=== PATIENT | male | born 1965 ===

== ENCOUNTER 2025-06-09 22:01 | Emergency (ER) | payer BC, SELFPAY ==
--- OUTSIDE RECORDS SUMMARY | 2025-06-09 22:03 | XMS_ITS | Clinical Summary ---
Author Organization [facility] Address [address] [place] [address] Care Team Providers Care Irrigation Specialist Name Role Phone VotelAlex MD Primary Care Provider + Allergies No known active allergies Medications MedicationSigDispense QuantityRefillsLast FilledStart DateEnd DateStatus aspirin (ECOTRIN) 81 mg enteric coated tablet Take 1 Tablet (81 mg) by mouth once daily with a meal.ctive multivitamin (MVI) tablet Take 1 Tablet by mouth once daily.ctive lancets (DefiniensTouch Delica Plus Lancet) 30 gauge [facility] Indications:New onset type 2 diabetes mellitus (HC)As directed. Dispense item covered by pt ins. E11.9 NIDDM type II - Test 2 times/day. Reason: New diabetes 100 Each 2Active blood sugar diagnostic (OneTouch Verio test strips) strip Indications:New onset type 2 diabetes mellitus (HC)Dispense test strips covered by the patient insurance. Test 2 times per day. 90 Each 4Active dulaglutide (TRULICITY) 3 mg/0.5 mL subcutaneous pen Indications:New onset type 2 diabetes mellitus (HC)Inject 0.5 ML under the skin 1 time weekly 6 mL 5Active lisinopriL (PRINIVIL; ZESTRIL) 10 mg tablet Indications:HTN (hypertension)TAKE 1 TABLET(10 MG) BY MOUTH EVERY DAY 90 Tablet 5Active rosuvastatin (CRESTOR) 10 mg tablet Indications:Hyperlipidemia LDL goal <70TAKE 1 TABLET(10 MG) BY MOUTH AT BEDTIME 90 Tablet 5Active metFORMIN (GLUCOPHAGE) 1,000 mg tablet Indications:New onset type 2 diabetes mellitus (HC)TAKE 1 TABLET(1000 MG) BY MOUTH IN THE MORNING AND IN THE EVENING WITH MEALS 180 Tablet 5Active oxybutynin (DITROPAN) 5 mg tablet Indications:Left ureteral stoneTake 1 Tablet (5 mg) by mouth 3 times daily if needed (bladder spasms). 30 Tablet 05/15/2025 11:56 AM CST5Active apixaban (ELIQUIS) 5 mg tablet Indications:deep venous thrombosisTake 1 Tablet (5 mg) by mouth two times daily. 60 Tablet 5Active tamsulosin 0.4 mg capsule Indications:Left ureteral stoneTake 1 Capsule (0.4 mg) by mouth once daily after a meal. 30 Capsule 5Active sennosides (SENNA) 8.6 mg tablet Indications:At risk for constipationTake 2 Tablets (17.2 mg) by mouth 2 times daily if needed for Constipation (and while taking oxycodone). 60 Tablet 5Active hydrOXYzine HCL (ATARAX) 50 mg tablet Indications:Pain due to ureteral stent, subsequent encounterTake 1 Tablet (50 mg) by mouth every 6 hours if needed (pain adjunct) for 7 days, THEN 1 Tablet (50mg) 3 times daily if needed (pain adjunct) for up to 15 days. 60 Tablet 5Active oxyCODONE (ROXICODONE) 5 mg immediate release tablet Indications:Flank pain, unspecified laterality,Left ureteral stoneTake 1 Tablet (5 mg) by mouth every 6 hours if needed for Pain. 24 Tablet 5Active glucosam/bentley-msm1/C/danie/bosw (OSTEO BI-FLEX TRIPLE STRENGTH ORAL) Take by mouth.05/13/2025Discontinued(Other - add note to specify (E-cancel not sent)) tamsulosin 0.4 mg capsule Indications:Left ureteral stoneTake 1 Capsule (0.4 mg) by mouth once daily after a meal. 30 Capsule 05/15/2025 11:56 AM CSTDiscontinued oxyCODONE (ROXICODONE) 5 mg immediate release tablet Indications:Left ureteral stoneTake 1 to 2 Tablets (5 to 10 mg) by mouth every 4 hours if needed for Pain (For moderate to severe pain.). 8 Tablet 05/15/2025 11:56 AM [facility]/Discontinued(Reorder (E-cancel not sent)) ciprofloxacin (CIPRO) 500 mg tablet Indications:urinary tract infectionTake 1 Tablet (500 mg) by mouth two times daily before meals for 5 days. 10 Tablet 05/15/2025 11:56 AM [facility] Discontinued) acetaminophen (TYLENOL EXTRA STRGTH) 500 mg tablet Indications:Left ureteral stoneTake 2 Tablets (1,000 mg) by mouth three times daily for 10 days. Max acetaminophen dose: 4000mg in24 hrs. 60 Tablet 05/15/2025 11:56 AM [facility] methocarbamoL 500 mg tablet Indications:Left ureteral stone,PainTake 1 Tablet (500 mg) by mouth 3 times daily if needed for Muscle Spasm for up to 7 days. 21 Tablet 05/15/2025 11:56 AM Discontinued(*Med complete/Regimen complete/Level of care change) oxyCODONE (ROXICODONE) 5 mg immediate release tablet Indications:Kidney stoneTake 1 Tablet (5 mg) by mouth every 6 hours if needed for Pain. 6 Tablet Discontinued(*Patient states no longer taking) HYDROmorphone 2 mg tablet Indications:Renal colic on left sideTake 1 Tablet (2 mg) by mouth every 4 hours if needed for Pain. 15 Tablet Discontinued(*IP Discontinued) tamsulosin 0.4 mg capsule Indications:Left ureteral stoneTake 1 Capsule (0.4 mg) by mouth once daily after a meal. 30 Capsule Discontinued hydrOXYzine HCL (ATARAX) 50 mg tablet Indications:Flank pain, unspecified lateralityTake 1 Tablet (50 mg) by mouth three times daily for 7 days, THEN 1 Tablet (50 mg) 3 times daily ifneeded (pain adjunct) for up to 15 days. 60 Tablet Discontinued oxyCODONE (ROXICODONE) 5 mg immediate release tablet Indications:Flank pain, unspecified laterality,Left ureteral stoneTake 1 Tablet (5 mg) by mouth three times daily. For 3 days then three times daily as needed for pain. 20 Tablet Discontinued sennosides (SENNA) 8.6 mg tablet Indications:At risk for constipationTake 2 Tablets (17.2 mg) by mouth 2 times daily if needed for Constipation (and while taking oxycodone). 60 Tablet Discontinued hydrOXYzine HCL (ATARAX) 50 mg tablet Indications:Flank pain, unspecified lateralityTake 1 Tablet (50 mg) by mouth three times daily for 7 days, THEN 1 Tablet (50 mg) 3 times daily ifneeded (pain adjunct) for up to 15 days. 60 Tablet Discontinued(*Medication adjustment) oxyCODONE (ROXICODONE) 5 mg immediate release tablet Indications:Flank pain, unspecified laterality,Left ureteral stoneTake 1 Tablet (5 mg) by mouth three times daily. For 3 days then three times daily as needed for pain. 20 Tablet Discontinued(Reorder (E-cancel not sent)) Active Problems ProblemNoted DateDiagnosed DatePain due to ureteral stent05/20/2025Leukocytosis 05/15/2025History of DVT (deep vein thrombosis)05/12/20259847Ermlubcculwf00/23/2025 Left ureteral stone05/12/2025Pneumonia due to COVID-19 virus09/25/2020Morbid obesity with BMI of 40.0-44.9, adult09/25/2020lass 1 obesity in adult09/25/2020 Peripheral vascular disease, unspecifiedHISTORY OF PULMONARY EMBOLISM/INFARCT Other and unspecified hyperlipidemiaPersonal history of tobacco use, presenting hazards to healthHYPOALPHALIPOPROTEINEMIAType 2 diabetes mellitus, without long- term current use of insulin Resolved Problems ProblemNoted DateDiagnosed DateResolved DateSinoatrial node dysfunction /cute type 1 respiratory lkadwvl25/HX OF ARTERIAL EMBOLISM/THROMBOSIS LOWR EXTR01/12/2024 Encounters DateTypeDepartmentCare HzqmQmyofaggxbd09/19/2025Telephone [facility] [address] [place] [address] Alex Valderrama MD Other05/30/2025Telephone [facility] [address] [place] [address] Alex Valderrama MD Form05/30/2025Telephone [address] [address] VoteAlex james MD Medication Management (oxyCODONE)05/30/2025Telephone [address] [address] Alex Valderrama MD Refill Request (oxyCODONE )05/23/2025 2:30 PM CSTOffice Visit [facility] [address] [place] [address] Alex Valderrama MD [facility]/ (05/20-05/21 ureteral stent/05/12-05/15 Kidney stone )05/23/2025 Ezjoom5105/22/2025Telephone [facility] [address] [place] [address] Rogers Patton MD Referral (KALYN)05/22/2025Patient Outreach [facility] [address] [place] [address] Beryl Suarez, RN Primary RN Care Management; [facility] (LACE 68)05/20/2025 5:20 AM UI DEVELOPER - 05/21/2025 3:15 PM CSTHospital Encounter [facility] [address] [place] [address] Jerry Pratt MD Hospitalist, [facility] Prabhjot Scaheffer, uKldeep Lock DO Ureteral stent present (Primary Dx); Flank pain, unspecified laterality; Leukocytosis, unspecified type; Left ureteral stone; At risk for constipation Discharge Disposition: Home Self Care05/20/20259226Ezrtib11/29/2025 6:32 PM UI DEVELOPER - 05/18/2025 9:02 PM CSTEmergency [facility] [address] [place] [address] Dakota Cardoso MD Renal colic on left side (Primary Dx); Acute deep vein thrombosis (DVT) of calf muscle vein of right lower extremity (HC); Left ureteral stone; Acute left-sided low back pain without sciatica; Nausea and vomiting, unspecified vomiting type; Acute pain of right lower extremity; Dysuria; History of DVT (deep vein thrombosis); Diarrhea, unspecified type; Gross hematuria; Leukocytosis, unspecified type; Pyuria Discharge Disposition: Home Self Care05/18/20251054Byjbxm06/29/2025Refill [address] [address] Lino Camejo MD Refill Jbleqtu2905/17/2025Patient Outreach [facility] [address] [place] [address] Beryl Suarez, RN Primary RN Care Management; Hospital F/U (LACE 68)05/13/2025 7:51 PM UI DEVELOPER Anesthesia Event [address] [address] Javed Jurado MD 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, 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, 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 05/13/2025 6:50 PM UI DEVELOPER - 05/13/2025 8:01 PM CSTSurgery [address] [address] Kuldeep Rebollar MD CYSTOSCOPY PLACEMENT OF LEFT URETERAL STENT, LEFT RETROGRADE PDBSZNJYR09/23/2025 9:20 PM UI DEVELOPER - 05/15/2025 12:06 PM CSTHospital Encounter [address] [address] s, Hospitalist [facility] Aemrica Snow MD Alagappan, Priya, MD Left ureteral stone (Primary Dx); Pain Discharge Disposition: Home Self Care05/12/2025 4:47 PM UI DEVELOPER - 05/12/2025 8:59 [facility] [address] [place] [address] Avtar Grimm PA Friedman, Sara Emily, MD Renal colic on left side (Primary Dx); Ureterolithiasis Discharge Disposition: Short Term/PPS Hosp05/12/2025 9:20 AM UI DEVELOPER - 05/12/2025 12:43 PM [facility] [address] [place] [address] Mitra Gentile MD Kidney stone (Primary Dx) Discharge Disposition: Home Self Care05/12/20250029Mvaclz73/09/2025Refill [facility] [address] [place] [address] Alex Valderrama MD Refill Request (Metformin)from Last 3 Months Immunizations ImmunizationAdministration DatesNext DueCOVID-19 vaccine (Pfizer-BioNTech 30mcg/0.3mL) 12YO+ BIVALENT PF, MDV12COVID-19 vaccine (Pfizer-BioNTech 30mcg/0.3mL) 12YO+ RO-SUCROSE PF, MDV2COVID-19 vaccine (Pfizer- BioNTech 30mcg/0.3mL) PF, MDV02/02/2021,01/09/2021Influenza A (H1N1), Lnqdffwyrwz99/19/2010Influenza A (H1N1), Inactivated (Age >=3 Years)07/08/2009 Influenza Virus, Iwzfqgtoewy98/04/2011Influenza, CCIIV3 (Age >=6 MO) (Egg Free) 03/12/2025,03/22/2024Influenza, IIV3 (Age >=3 years)04/03/2021,04/12/2014, 04/04/2013,04/14/2012,04/07/2011,04/08/2010,03/17/2009Influenza, IIV4 (=>6mos) MDV1Influenza, Whole Virus04/04/2017Influenza,CCIIV4 PRESERV FREE 04/16/2023,04/12/2022neumococcal Conj 20-valent (Prevnar 20)04/23/2022SV, Bivalent Vaccine Reconstituted (Abrysvo 120MCG/0.5mL)03/12/20257993Lhacyec39/08/1980 Td (Age >=7 Years)11/27/2007,10/02/1976Tdap106/23/2021,11/27/2007Zoster (Shingrix-RZV, recombinant)03/09/2022,11/26/2021 Family History Medical HistoryRelationNameCommentsGood HealthFatherHeart DiseaseMaternal GrandfatherHeart DiseaseMaternal WaoztacxddlScujre-fvywprRplgaqUypcjy-yvbgvg Sister 2RelationNameStatusCommentsFatherDeceasedMaternal GrandfatherDeceased Maternal GrandmotherDeceasedMotherAlivePaternal GrandfatherDeceasedPaternal GrandmotherDeceasedSister 1AliveSister 2 Social History Tobacco UseTypesPacks/DayYears UsedDateSmoking Tobacco: RabskhPvsaqluvic009 06/17/1985 - 06/17/2005Smokeless Tobacco: FormerQuit: 01/06/1988 Tobacco Cessation:Counseling Given: Yes Alcohol UseStandard Drinks/WeekCommentsNo0 (1 standard drink = 0.6 oz pure alcohol)PHQ-2AnswerDate RecordedPHQ-2 TOTAL [id number] Connections AnswerDate RecordedDo you often feel lonely or isolated from those around you?0 05/20/2025lcohol UseAnswerDate RecordedHow often do you have a drink containing alcohol?verage Number of DrinksNot on file05/23/2025How often do you have five or more drinks on one occasion?Financial Resource Strain AnswerDate RecordedDifficulty of Paying Living Pksjlhyo084/24/2025Difficulty of Paying Living ExpensesNot on file05/13/2025Food InsecurityAnswerDate RecordedDo you worry your food will run out before you are able to buy more? Transportation NeedsAnswerDate RecordedDoes lack of transportation keep you from medical appointments?Does lack of transportation keep you from work, meetings or getting things that you need?Housing StabilityAnswerDate RecordedWhat is your housing situation today?Interpersonal Safety AnswerDate RecordedAre you being hit, kicked, pushed or yelled at (see row info)?No05/20/2025Interpersonal Safety Abuse 12 - 18Not on file05/20/2025 Interpersonal Safety Ambulatory VulnerabilityNot on file05/20/2025Utilities AnswerDate RecordedDo you have trouble paying for utilities (for example, heat, electricity, water, phone)?Sex and Gender InformationValueDate RecordedSex Assigned at BirthNot on fileLegal DokEgdz3407/03/2012 5:23 AM UI DEVELOPER Gender IdentityNot on fileSexual OrientationNot on fileOccupationIndustryJob Start DateJob End Datefork lift driverNot on fileNot on fileNot on file Last Filed Vital Signs Vital SignReadingTime TakenCommentsBlood Epigakqz919/80107/24/2024 2:28 PM UI DEVELOPER Kkusy332405/23/2025 2:28 PM LSWSdjnuaabndl75.8 ??C (98.2 ??F)05/23/2025 2:28 PM CSTRespiratory Egbz804207/22/2024 9:34 AM CSTOxygen Opxszhttzd93%05/23/2025 2:28 PM CSTInhaled Oxygen Concentration--Igkmuo71.3 kg (210 lb)05/23/2025 2:28 PM UI DEVELOPER Ddmtix898.3 cm (5' 9)05/20/2025 5:32 AM CSTBody Mass Index31.01107/21/2024 5:32 AM UI DEVELOPER Plan of Treatment DateTypeDepartmentCare Team (Latest Contact Info)Iehqsjjbkym28/06/2026 3:20 PM CSTOffice Visit [facility] [place] [address] Votel, MD [address] [facility] [place] [address] 07/12/2025 8:00 AM CSTOffice Visit [address] [place] [address] Cintia Valerio PA [address] [place] [address] Health MaintenanceDue DateLast DoneCommentsHIV for age 15-6506/18/1978COVID-19 vaccine series (2024- season), 08/24/2021, 02/02/2021, Additional history existsDepression screening for age 12+/, 08/01/2024, 01/12/2024, Additional history existsBMI (ht and wt on same day) for age 18+/, 10/24/2024, 08/16/2024, Additional history exists Fecal testing sDNA-FIT (Cologuard) for age 45-7509/04/2023Lipids for age 45-750907/, 10/26/2021, 08/18/2021, Additional history exists Tetanus uktcxqr64/09/2021, 11/27/2007, 11/27/2007, Additional history existsHepatitis C screening for age 18-13Clezpfrnm79/01/2006, 07/02/2005, 07/02/2004Zoster (shingles) series for age 50+Wlyirmrza77/20/2022, 11/26/2021 Pneumococcal series for age 50+Otkrhwfgb06/04/2022Influenza VaccineCompleted 03/12/2025, 03/22/2024, 04/16/2023, Additional history existsRSV vaccine for adults or fhlrmngxcHplatilxc89/23/2025Hepatitis B series for 19+Aged OutNo longer eligible based on patient's age to complete this topic Medical Devices ImplantedTypeAreaManufacturerDevice IdentifierShelf Expiration DateModel / Serial / LotGraft Vasc [id number] [id number] Wlgore - [id number] [id number] / / [id number]:r legStent Uret [id number] Percuflex Hydroplus - [id number] Implanted:Qty: 1 on 05/13/2025 [facility] UreterBSC [id number] / / [id number] Procedures Procedure NamePriorityDate/TimeAssociated DiagnosisCommentsHEMOGLOBINRoutine 05/23/2025 3:46 PM UI DEVELOPER Hematuria, unspecified type GLUCOSE PEMJNTjdiqhj97/02/2025 7:03 AM UI DEVELOPER C-REACTIVE PROTEINEarly AM05/21/2025 6:26 AM UI DEVELOPER POTASSIUMEarly AM05/21/2025 6:26 AM UI DEVELOPER WHITE BLOOD COUNTEarly AM05/21/2025 6:26 AM UI DEVELOPER MAGNESIUMEarly AM05/21/2025 6:26 AM UI DEVELOPER HEMOGLOBINEarly AM05/21/2025 6:26 AM UI DEVELOPER CREATININEEarly AM05/21/2025 6:26 AM UI DEVELOPER GLUCOSE ATDFZPiplren33/01/2025 9:21 PM UI DEVELOPER GLUCOSE JQNGGOewfika58/01/2025 4:33 PM UI DEVELOPER GLUCOSE PYTOQKitcoip21/01/2025 10:09 AM UI DEVELOPER URINALYSIS NYYIUYUJGHCRRKK27/01/2025 9:51 AM UI DEVELOPER URINE OBNDKIKLwfsn70/01/2025 9:51 AM UI DEVELOPER UA W/ SEDIMENT EXAM REFLEXED PER QKGGLKIIQFHO19/01/2025 9:[address] ABDOMEN PELVIS STONE PROTOCOL ZLDYWX2405/20/2025 6:24 AM UI DEVELOPER C-REACTIVE EBJVJLUZJKM05/01/2025 6:08 AM UI DEVELOPER CBC WITH AUTO NUGAHCPBAWPLTEGU12/01/2025 6:08 AM UI DEVELOPER BASIC METABOLIC DAGAONXAK15/01/2025 6:08 AM UI DEVELOPER CBC WITH AUTO JUJWVNHOASXEDYSC84/01/2025 6:08 AM UI DEVELOPER US VENOUS LOWER EXTREMITY FOPCLSTBJ67/29/2025 7:58 PM UI DEVELOPER URINE PZRGYLHQVWD76/29/2025 7:31 PM UI DEVELOPER URINALYSIS YRHYZKOLTMKYLHN87/29/2025 7:31 PM UI DEVELOPER UA W/ SEDIMENT EXAM REFLEXED PER GXAPLTGXYNPY76/29/2025 7:[address] ABDOMEN PELVIS STONE PROTOCOL VRBOKW3205/18/2025 7:22 PM UI DEVELOPER CBC WITH AUTO PASMAVAWCXJYFJCF91/29/2025 7:01 PM UI DEVELOPER LRZRJZHCSMDNA02/29/2025 7:01 PM UI DEVELOPER EXTRA TUBE FNZADhxpv44/29/2025 7:01 PM CSTCBC WITH AUTO DIFFERENTIALSTAT 05/18/2025 7:01 PM UI DEVELOPER BASIC METABOLIC TWJXIYGHO68/29/2025 7:01 PM UI DEVELOPER GLUCOSE UNJPRNkkzm85/26/2025 6:56 AM UI DEVELOPER GLUCOSE HZFYAQqcme71/25/2025 9:05 PM UI DEVELOPER GLUCOSE KPNLFOlmpr85/25/2025 4:08 PM UI DEVELOPER GLUCOSE PHPIPSyajw29/25/2025 8:52 AM UI DEVELOPER WHITE BLOOD COUNTEarly AM05/14/2025 7:48 AM UI DEVELOPER HEMOGLOBINEarly AM05/14/2025 7:48 AM UI DEVELOPER CREATININEEarly AM05/14/2025 7:48 AM UI DEVELOPER POTASSIUMEarly AM05/14/2025 7:48 AM UI DEVELOPER GLUCOSE UVYLEBrnei55/24/2025 8:56 PM UI DEVELOPER XR RETROGRADE PYELOGRAM W/WO HSTQrqxurm37/24/2025 8:39 PM UI DEVELOPER CYSTOSCOPY PLACEMENT URETERAL STENT RITLQGPWNYG06/24/2025 7:41 PM UI DEVELOPER Left Kidney Stone GLUCOSE QPYPKCegpl98/24/2025 5:07 PM UI DEVELOPER GLUCOSE OOODHVnbil09/24/2025 4:43 PM UI DEVELOPER GLUCOSE CFQWQAzfzc73/24/2025 12:04 PM UI DEVELOPER CBC W PLT NO DIFFEarly AM05/13/2025 8:14 AM UI DEVELOPER MAGNESIUMEarly AM05/13/2025 8:14 AM UI DEVELOPER CREATININEEarly AM05/13/2025 8:14 AM UI DEVELOPER POTASSIUMEarly AM05/13/2025 8:14 AM UI DEVELOPER SODIUMEarly AM05/13/2025 8:14 AM UI DEVELOPER GLUCOSE ZTDVYPqorw91/24/2025 7:58 AM UI DEVELOPER GLUCOSE YTVTBQkaag17/24/2025 12:[address] ABDOMEN PELVIS STONE PROTOCOL QZXTJD8105/12/2025 11:42 AM UI DEVELOPER URINE JFTDOJUYJOH01/23/2025 10:33 AM UI DEVELOPER URINALYSIS GCRONVKHWKTNSEM43/23/2025 10:33 AM UI DEVELOPER UA W/ SEDIMENT EXAM REFLEXED PER CURXRKRTRBLJ40/23/2025 10:33 AM UI DEVELOPER XR SPINE LUMBAR 2 GYDNUDFUS41/23/2025 10:21 AM UI DEVELOPER CBC WITH AUTO KFYNOWXCBTDCMMZF67/23/2025 9:45 AM UI DEVELOPER BETA HYDROXYBUTYRATE IN RHPDUYYQG18/23/2025 9:45 AM UI DEVELOPER BASIC METABOLIC TKJOCVNFM42/23/2025 9:45 AM UI DEVELOPER CBC WITH AUTO GXCDBCETGQBPFFVC19/23/2025 9:45 AM UI DEVELOPER LIPID PANEL W REFLEX MEASURED ATQWidupev97/25/2024 3:31 PM CDT Hyperlipidemia LDL goal <70 SDNA-FIT EXTERNAL (COLOGUARD)Abkwefl6302/28/2023 3:10 PM CDT Screening for colon cancer ACUTE HEPATITIS KJFRSSpkdpgb99/01/2006 10:30 AM UI DEVELOPER Peripheral Vascular Disease from Last 3 Months or Most Recently Relevant to Health Maintenance Results * (ABNORMAL) HEMOGLOBIN (05/23/2025 3:46 PM UI DEVELOPER) Only the most recent of3 resultswithin the time period is included. ComponentValueRef RangeTest MethodAnalysis TimePerformed AtPathologist Signature DDMOJYKFBH31.213.2 - 17.1 g/dL05/24/2025 3:34 AM CSTQUEST ZNZITNGHPTELQI956.5(H) 81.4 - 101.7 fL05/24/2025 3:34 AM CSTQUEST DIAGNOSTICSSpecimen (Source) Anatomical Location / LateralityCollection Method / VolumeCollection Time Received TimeBloodBLOOD SPECIMEN / UnknownQuest Collect / Iiosvbp6405/23/2025 3:46 PM CST05/23/2025 3:46 PM UI DEVELOPER Narrative Authorizing ProviderResult TypeResult StatusAlex Valderrama MDHEMATOLOGY Final ResultPerforming OrganizationAddressCity/State/ZIP CodePhone Number [facility] [address] [address], * GLUCOSE METER (05/21/2025 7:03 AM UI DEVELOPER) Only the most recent of14 resultswithin the time period is included. ComponentValueRef RangeTest MethodAnalysis TimePerformed AtPathologist Signature GLUCOSE ZRXTL8958 - 100 mg/dL05/21/2025 7:04 AM [facility]STKA[facility] LABORATORYSpecimen (Source)Anatomical Location / LateralityCollection Method / VolumeCollection TimeReceived TimeBloodBLOOD SPECIMEN / Nnhotuq8505/21/2025 7:03 AM CST05/21/2025 7:04 AM UI DEVELOPER Narrative Authorizing ProviderResult TypeResult Status[facility] HospitalistCHEMISTRYFinal ResultPerforming OrganizationAddressCity/State/ZIP CodePhone Number [facility] [address] [place] [phone] * WHITE BLOOD COUNT (05/21/2025 6:26 AM UI DEVELOPER) Only the most recent of2 resultswithin the time period is included. ComponentValueRef RangeTest MethodAnalysis TimePerformed AtPathologist Signature WHITE BLOOD COUNT7.34.5 - 11.0 thou/cu mm05/21/2025 7:29 AM CSTKAISER F[facility] HOSP[facility] LABORATORYSpecimen (Source)Anatomical Location / LateralityCollection Method / VolumeCollection TimeReceived TimeBloodBLOOD SPECIMEN / Unknown Venipuncture / Sdauwdb4205/21/2025 6:26 AM CST05/21/2025 7:19 AM UI DEVELOPER Narrative Authorizing ProviderResult TypeResult StatusPrabhjot Castaneda DOHEMATOLOGY Final ResultPerforming OrganizationAddressCity/State/ZIP CodePhone Number [facility] [address] [place] [phone] * POTASSIUM (05/21/2025 6:26 AM UI DEVELOPER) Only the most recent of3 resultswithin the time period is included. ComponentValueRef RangeTest MethodAnalysis TimePerformed AtPathologist Signature POTASSIUM4.83.5 - 5.1 mmol/L107/22/2024 7:54 AM [facility] LABORATORYSpecimen (Source)Anatomical Location / LateralityCollection Method / VolumeCollection TimeReceived TimeBloodBLOOD SPECIMEN / UnknownVenipuncture / Fsqzfwq1205/21/2025 6:26 AM CST05/21/2025 7:19 AM UI DEVELOPER Narrative Authorizing ProviderResult TypeResult StatusPrabhjot Castaneda DOCHEMISTRYFinal ResultPerforming OrganizationAddressCity/State/ZIP CodePhone Number [facility] [address] [place] [phone] * (ABNORMAL) CREATININE (05/21/2025 6:26 AM UI DEVELOPER) Only the most recent of3 resultswithin the time period is included. ComponentValueRef RangeTest MethodAnalysis TimePerformed AtPathologist Signature eGFR89(L)>90 mL/min/1.15n94605/21/2025 7:54 AM [facility] LABORATORYComment:As of 09/01/2021, eGFR is calculated by the CKD-EPI creatinine equation without race adjustment. ??eGFR can be influenced by muscle mass, exercise, and diet. ??The reported eGFR is an estimation onlyand is only applicable if the renal function is stable.CREATININE0.970.70 - 1.20 mg/dL 05/21/2025 7:54 AM [facility] LABORATORYSpecimen (Source) Anatomical Location / LateralityCollection Method / VolumeCollection Time Received TimeBloodBLOOD SPECIMEN / UnknownVenipuncture / Jqwoyek6005/21/2025 6:26 AM CST05/21/2025 7:19 AM UI DEVELOPER Narrative Authorizing ProviderResult TypeResult StatusPrabhjot Celestine Stovallav[facility] DOCHEMISTRYFinal ResultPerforming OrganizationAddressCity/State/ZIP CodePhone Number [facility] [address] [place] [address] * (ABNORMAL) C-REACTIVE PROTEIN (05/21/2025 6:26 AM UI DEVELOPER) Only the most recent of2 resultswithin the time period is included. ComponentValueRef RangeTest MethodAnalysis TimePerformed AtPathologist Signature C-REACTIVE PROTEIN1.5(H)<0.5 mg/dL05/21/2025 7:54 AM CSTKAISER FOUND[facility] HOSPITAL LABORATORYSpecimen (Source)Anatomical Location / LateralityCollection Method / VolumeCollection TimeReceived TimeBloodBLOOD SPECIMEN / UnknownVenipuncture / Lpvndka7405/21/2025 6:26 AM CST05/21/2025 7:19 AM UI DEVELOPER Narrative Authorizing ProviderResult TypeResult StatusS[facility] DOCHEMISTRYFinal ResultPerforming OrganizationAddressCity/State/ZIP CodePhone Number [facility] [address] [place] [address] * MAGNESIUM (05/21/2025 6:26 AM UI DEVELOPER) Only the most recent of3 resultswithin the time period is included. ComponentValueRef RangeTest MethodAnalysis TimePerformed AtPathologist Signature MAGNESIUM2.11.6 - 2.4 mg/dL05/21/2025 7:54 AM [facility] LABORATORYSpecimen (Source)Anatomical Location / LateralityCollection Method / VolumeCollection TimeReceived TimeBloodBLOOD SPECIMEN / UnknownVenipuncture / Hdldzqv3105/21/2025 6:26 AM CST05/21/2025 7:19 AM UI DEVELOPER Narrative Authorizing ProviderResult TypeResult StatusPromedica [facility] DOCHEMISTRYFinal ResultPerforming OrganizationAddressty/State/ZIP CodePhone Number [facility] [address] [place] [address] * (ABNORMAL) URINALYSIS MICROSCOPIC (05/20/2025 9:51 AM UI DEVELOPER) Only the most recent of3 resultswithin the time period is included. ComponentValueRef RangeTest MethodAnalysis TimePerformed AtPathologist Signature RBC>100(A)0-2, None Seen /HPF05/20/2025 10:22 AM [facility] LABORATORYWBCNone Seen0-2, 3-5, None Seen /HPF05/20/2025 10:22 AM [facility] LABORATORYBACTERIAModerate(A)None Seen, Rare, Few Bacteria/HPF 05/20/2025 10:22 AM [facility] LABORATORYEPITHELIAL CELLSNone SeenNone Seen, Few Epi/HPF05/20/2025 10:22 AM [facility] LABORATORYCALCIUM OXALATE CRYSTALSPresent(A)(none)05/20/2025 10:22 AM UI DEVELOPER [facility] LABORATORYSpecimen (Source)Anatomical Location / LateralityCollection Method / VolumeCollection TimeReceived TimeUrineURINE SPECIMEN / UnknownNon-Blood / Lpcriil1905/20/2025 9:51 AM CST05/20/2025 10:11 AM UI DEVELOPER Narrative Authorizing ProviderResnorthern navajo medical center TypeResnorthern [facility] StatusJerry Pratt MDURINEFinal ResultPerforming OrganizationAddressCity/State/ZIP CodePhone Number [facility] [address] [place] [address] * URINE CULTURE (05/20/2025 9:51 AM UI DEVELOPER) Only the most recent of3 resultswithin the time period is included. ComponentValueRef RangeTest MethodAnalysis TimePerformed AtPathologist Signature CULTURENo growth (<1,000 CFU/mL)05/21/2025 8:52 AM [facility] LABORATORYSpecimen (Source)Anatomical Location / LateralityCollection Method / VolumeCollection TimeReceived TimeUrineURINE SPECIMEN / UnknownNon- Blood / Lwlnjvr7805/20/2025 9:51 AM CST05/20/2025 10:11 AM UI DEVELOPER Narrative Authorizing ProviderSoc[facility] TypeResnorthern [facility] medical [facility] StatusJerry Pratt MD MICROBIOLOGYFinal ResultPerforming OrganizationAddressCity/State/ZIP CodePhone Number [facility] [address] [place] [address], [place] * (ABNORMAL) UA W/ SEDIMENT EXAM REFLEXED PER CRITERIA (05/20/2025 9:51 AM UI DEVELOPER) Only the most recent of3 resultswithin the time period is included. ComponentValueRef RangeTest MethodAnalysis TimePerformed AtPathologist Signature COLORRed(A)Yellow Color05/20/2025 10:17 AM [facility] LABORATORYCLARITYTurbid(A)Clear Rqqxphm5905/20/2025 10:17 AM [facility] LABORATORYSPECIFIC GRAVITY,URINEUnable to interpret due to interfering substance(A)1.010, 1.015, 1.020, 1.4903505/20/2025 10:17 AM [facility] LABORATORYPH,URINEUnable to interpret due to interfering substance(A)6.0, 7.0, 8.0, 5.5, 6.5, 7.5, 8. 10:17 AM [facility] LABORATORYUROBILINOGEN,QUALITATIVEUnable to interpret due to interfering substance(A)Normal EU/dl05/20/2025 10:17 AM [facility] LABORATORYPROTEIN, URINEUnable to interpret due to interfering substance(A) Negative mg/dL05/20/2025 10:17 AM [facility] LABORATORYGLUCOSE, URINEUnable to interpret due to interfering substance(A)Negative mg/dL05/20/2025 10:17 AM [facility] LABORATORYKETONES,URINEUnable to interpret due to interfering substance(A)Negative mg/dL05/20/2025 10:17 AM [facility] LABORATORYBILIRUBIN,URINEUnable to interpret due to interfering substance(A)Xwfalwsu11/01/2025 10:17 AM [facility] Comment:A variety of metabolites and/or medications may result in a positive bilirubin result. Clinical correlation is recommended.OCCULT BLOOD,URINEUnable to interpret due to interfering substance(A)Jxrharrg05/01/2025 10:17 AM [facility] LABORATORYNITRITEUnable to interpret due to interfering substance(A)Uqnoljwg97/01/2025 10:17 AM [facility] LEUKOCYTE ESTERASEUnable to interpret due to interfering substance(A)Negative 05/20/2025 10:17 AM [facility] LABORATORYSpecimen (Source) Anatomical Location / LateralityCollection Method / VolumeCollection Time Received TimeUrineURINE SPECIMEN / UnknownNon-Blood / Lrucvjq5905/20/2025 9:51 AM CST05/20/2025 10:11 AM UI DEVELOPER Narrative Authorizing ProviderResult TypeResult StatusNatchristine Pratt MDURINEFinal ResultPerforming OrganizationAddressCity/State/ZIP CodePhone Number [facility] [address] [facility] [place] [address] * CT ABDOMEN PELVIS STONE PROTOCOL WO (05/20/2025 6:24 AM UI DEVELOPER) Only the most recent of3 resultswithin the time period is included. Anatomical RegionLateralityModalityAbdomen, Pelvis, AORTA, LIVER, SPLEENComputed TomographySpecimen (Source)Anatomical Location / LateralityCollection Method / VolumeCollection TimeReceived Time05/20/2025 6:34 AM UI DEVELOPER Impressions 05/20/2025 6:34 AM UI DEVELOPER 1. The left-sided internalized ureteral stent is properly located. Again noted is a stone external to the stent unchanged in position measuring about 3 millimeters in the mid left ureter. 2. Left perinephric and proximal periureteric stranding and mild dilation of the left ureter, especially of the proximal 3rd of the left ureter. This has somewhat worsened since the prior study. Thismay indicate less than ideal functioning of the catheter and/or infection. 3. Cholelithiasis without evidence of acute cholecystitis or common duct obstruction. 4. Extensive atherosclerotic vascular calcifications, especially pelvic. Stenting of a portion of the right iliac system. 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 Other nonacute appearing findings as above Please note that all CT scans at this facility use dose modulation, iterative reconstruction, and/or weight-based dosing when appropriate to reduce radiation dose to as low as reasonably achievable. Dictated by Guille Headley MD @ 05/20/2025 6:34:44 AM (Electronically Signed) Narrative 05/20/2025 6:34 AM UI DEVELOPER For Patients: As a result of the Century Cures Act, medical imaging exams and procedure reports are released immediately into your electronic medical record. You may view this report before your referring provider. If you have questions, please contact your health care provider. INDICATION: Severe increasing and left flank pain. Ureteral stent in place. Assess for any change that may indicate that the stent is misplaced or not functioning. COMPARISON: May 18, 2025 TECHNIQUE: CT examination of the abdomen and pelvis was performed without intravenous contrast. Thin section axial images were obtained from the lung bases through the pubic symphysis. Oral contrast was not administered. ?? Please note that all CT scans at this facility use dose modulation, iterative reconstruction, and/or weight-based dosing when appropriate to reduce radiation dose to as low as reasonably achievable. FINDINGS: LUNG BASES: Minimal bibasilar subsegmental atelectasis.The heart size is normal at the lung bases. LIVER/BILIARY SYSTEM:The liver is normal in size and configuration given the lack of intravenous contrast. There is no visible focal mass and there is no intra- or extra hepatic biliary ductal dilatation.Distended gallbladder. Stones. No wall thickening or pericholecystic fluid. No evidence of choledocholithiasis. ADRENALS: Normal non-contrast appearance KIDNEYS, URETERS and BLADDER:Normal-sized kidneys. Small intrarenal calculi. A left-sided ureteral stent is noted which is properly located extending from the midpole left kidney through the left ureter terminating in the bladder. There is mild left hydronephrosis and left hydroureter with proximalperinephric and periureteric stranding which has somewhat worsened. This could be due to less than ideal functioning of the catheter and/or infection. The bladder appears normal. A stone is noted external to the catheter in the mid left ureter as noted previously SPLEEN:Normal non-contrast appearance. PANCREAS: Normal non-contrast appearance. RETROPERITONEUM and MESENTERY: No mass or adenopathy. Significant atherosclerosis especially of theiliac system with stenting as previously. 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 GASTROINTESTINAL SYSTEM: There is no evidence of diverticulitis, colitis, mechanical obstruction, or appendicitis. The small bowel as visualized appears normal.Fecal retention and diverticulosis. PELVIS: No mass, adenopathy or free fluid. OSSEOUS STRUCTURES and ABDOMINAL WALL: There is an age-appropriate appearance of the osseous structures.Redemonstration of a fat containing umbilical region hernia measuring about 4 centimeters. OTHER: No free fluid or free air. Procedure Note Guille Headley MD - 05/20/2025 For Patients: As a result of the Cures Act, medical imagingexams and procedure reports are released immediately into your electronicmedical record. You may view this report before your referring provider.If you have questions, please contact your health care provider. INDICATION: Severe increasing and left flank pain. Ureteral stent in place. Assess forany change that may indicate that the stent is misplaced or notfunctioning. COMPARISON: May 18, 2025 TECHNIQUE: CT examination of the abdomen and pelvis was performed without intravenous contrast. Thin section axial images were obtained from the lung basesthrough the pubic symphysis. Oral contrast was not administered. Please note that all CT scans at this facility use dose modulation,iterative reconstruction, and/or weight-based dosing when appropriate toreduce radiation dose to as low as reasonably achievable. FINDINGS: LUNG BASES: Minimal bibasilar subsegmental atelectasis.The heart size isnormal at the lung bases. LIVER/BILIARY SYSTEM:The liver is normal in size and configuration giventhe lack of intravenous contrast. There is no visible focal mass and thereis no intra- or extra hepatic biliary ductal dilatation.Distendedgallbladder. Stones. No wall thickening or pericholecystic fluid. Noevidence of choledocholithiasis. ADRENALS: Normal non-contrast appearance KIDNEYS, URETERS and BLADDER:Normal-sized kidneys. Small intrarenalcalculi. A left-sided ureteral stent is noted which is properly locatedextending from the midpole left kidney through the left ureter terminatingin the bladder. There is mild left hydronephrosis and left hydroureterwith proximal perinephric and periureteric stranding which has somewhatworsened. This could be due to less than ideal functioning of the catheterand/or infection. The bladder appears normal. A stone is noted external tothe catheter in the mid left ureter as noted previously SPLEEN:Normal non-contrast appearance. PANCREAS: Normal non-contrast appearance. RETROPERITONEUM and MESENTERY: No mass or adenopathy. Significantatherosclerosis especially of the iliac system with stenting aspreviously. There is also an aneurysm of a branch of the right internaliliac artery measuring about 2.4 centimeters which is unchanged. GASTROINTESTINAL SYSTEM: There is no evidence of diverticulitis, colitis, mechanical obstruction, or appendicitis. The small bowel as visualizedappears normal.Fecal retention and diverticulosis. PELVIS: No mass, adenopathy or free fluid. OSSEOUS STRUCTURES and ABDOMINAL WALL: There is an age-appropriateappearance of the osseous structures.Redemonstration of a fat containingumbilical region hernia measuring about 4 centimeters. OTHER: No free fluid or free air. IMPRESSION: 1. The left-sided internalized ureteral stent is properly located. Againnoted is a stone external to the stent unchanged in position measuringabout 3 millimeters in the mid left ureter. 2. Left perinephric and proximal periureteric stranding and mild dilationof the left ureter, especially of the proximal 3rd of the left ureter.This has somewhat worsened since the prior study. This may indicate lessthan ideal functioning of the catheter and/or infection. 3. Cholelithiasis without evidence of acute cholecystitis or common duct obstruction. 4. Extensive atherosclerotic vascular calcifications, especially pelvic.Stenting of a portion of the right iliac system. There is also an aneurysmof a branch of the right internal iliac artery which is unchanged since atleast May 09, 2015 5. Other nonacute appearing findings as above Please note that all CT scans at this facility use dose modulation,iterative reconstruction, and/or weight-based dosing when appropriate toreduce radiation dose to as low as reasonably achievable. Dictated by Guille Headley MD @ 05/20/2025 6:34:44 AM (Electronically Signed) Authorizing ProviderResult TypeResult StatusNathantaylor Cayden De Leonler MDCTFinal Result * (ABNORMAL) CBC WITH AUTO DIFFERENTIAL (05/20/2025 6:08 AM UI DEVELOPER) Only the most recent of3 resultswithin the time period is included. ComponentValueRef RangeTest MethodAnalysis TimePerformed AtPathologist Signature WHITE BLOOD COUNT14.0(H)4.5 - 11.0 thou/cu mm05/20/2025 6:36 AM [facility] LABORATORYRED BLOOD COUNT4.15(L)4.30 - 5.90 mil/cu mm05/20/2025 6:36 AM [facility] WJQKIVWRLPEPWNIQLYJQ89.813.5 - 17.5 g/dL 05/20/2025 6:36 AM [facility] QHVJCLJLPVJPYNLVEEUF60.737.0 - 53.0 %05/20/2025 6:36 AM [facility] XTQTVDQMCMEIB013(H)80 - 100 fL05/20/2025 6:36 AM [facility] QUTEMILRWDTLN38.326.0 - 34.0 pg 05/20/2025 6:36 AM [facility] EGHRDULBZPIHCW81.132.0 - 36.0 g/dL05/20/2025 6:36 AM [facility] XDUSLJMBMLMZT26.411.5 - 15.5 %05/20/2025 6:36 AM [facility] LABORATORYPLATELET [id number] - 440 thou/cu mm05/20/2025 6:36 AM [facility] LABORATORYMPV9.96.5 - 11.0 fL05/20/2025 6:36 AM [facility]% NEUT81.0% 05/20/2025 6:36 AM [facility]% LYMPH9.2%05/20/2025 6:36 AM [facility]% MONO7.5%05/20/2025 6:36 AM [facility]% EOS2.0%05/20/2025 6:36 AM [facility]% BASO0.3%05/20/2025 6:36 AM [facility] LABORATORYABSOLUTE RCJDRWMPUUQ68.4(H)1.7 - 7.0 thou/cu mm05/20/2025 6:36 AM [facility] LABORATORYABSOLUTE LYMPHOCYTES1.30.9 - 2.9 thou/cu mm05/20/2025 6:36 AM [facility] LABORATORYABSOLUTE MONOCYTES1.1(H)<0.9 thou/cu mm05/20/2025 6:36 AM [facility] LABORATORYABSOLUTE EOSINOPHILS0.3<0.5 thou/cu mm05/20/2025 6:36 AM [facility] LABORATORYABSOLUTE BASOPHILS0.0<0.3 thou/cu mm05/20/2025 6:36 AM [facility] LABORATORYSpecimen (Source)Anatomical Location / LateralityCollection Method / VolumeCollection TimeReceived TimeBloodBLOOD SPECIMEN / UnknownVenipuncture / Oapvcdu7105/20/2025 6:08 AM CST05/20/2025 6:27 AM UI DEVELOPER Narrative Authorizing ProviderResult TypeResult StatusNatchristine Pratt MDHEMATOLOGY Final ResultPerforming OrganizationAddressCity/State/ZIP CodePhone Number [facility] [address] [place] [address] * (ABNORMAL) BASIC METABOLIC PANEL (05/20/2025 6:08 AM UI DEVELOPER) Only the most recent of3 resultswithin the time period is included. ComponentValueRef RangeTest MethodAnalysis TimePerformed AtPathologist Signature [id number] - 145 mmol/L107/21/2024 6:47 AM [facility] LABORATORYPOTASSIUM4.03.5 - 5.1 mmol/L107/21/2024 6:47 AM [facility] KOQJDJUSODXPZNPLVK95907 - 107 mmol/L107/21/2024 6:47 AM [facility] LABORATORYCO2,OJPCB5155 - 29 mmol/L107/21/2024 6:47 AM [facility] LABORATORYANION DTB821 - 18107/21/2024 6:47 AM [facility] ZANPTICAEGMJTNCTY254(H)70 - 99 mg/dL05/20/2025 6:47 AM [facility] LABORATORYCALCIUM9.48.8 - 10.4 mg/dL05/20/2025 6:47 AM [facility] LABORATORYComment: Reference ranges for this test were updated on 04/24/2024 to reflect our healthy population more accurately. Reference range changes are not retroactively applied to results, but previous results using the same methodology can be interpreted in the context of the new reference range. RBE968 - 23 mg/dL05/20/2025 6:47 AM [facility] CREATININE1.140.70 - 1.20 mg/dL05/20/2025 6:47 AM [facility] LABORATORYBUN/CREAT BJUGT2189 - 6:47 AM [facility] FCVIQQOLEMeWGN84(L)>90 mL/min/1.02e82105/20/2025 6:47 AM [facility] LABORATORYComment:As of 09/01/2021, eGFR is calculated by the CKD-EPI creatinine equation without race adjustment. ??eGFR can be influenced by muscle mass, exercise, and diet. ??The reported eGFR is an estimation onlyand is only applicable if the renal function is stable.Specimen (Source)Anatomical Location / LateralityCollection Method / VolumeCollection TimeReceived TimeBloodBLOOD SPECIMEN / UnknownVenipuncture / Pdutfrv4405/20/2025 6:08 AM CST05/20/2025 6:27 AM UI DEVELOPER Narrative Authorizing ProviderResult TypeResult StatusNathantaylor Pratt MDCHEMISTRY Final ResultPerforming OrganizationAddressCity/State/ZIP CodePhone Number [facility] [address] [place] [address] * US VENOUS LOWER EXTREMITY RIGHT (05/18/2025 7:58 PM UI DEVELOPER)Anatomical Region LateralityModalityLEGS, LEG R, AbdomenUltrasoundSpecimen (Source)Anatomical Location / LateralityCollection Method / VolumeCollection TimeReceived Time 05/18/2025 8:08 PM UI DEVELOPER Impressions 05/18/2025 8:08 PM UI DEVELOPER 1. Acute DVT in the right gastrocnemius vein. 2. Findings discussed with Dakota Cardoso at 8:08 p.m. on 05/18/2025. Dictated by Estrella Flores MD @ 05/18/2025 8:05:43 PM (Electronically Signed) Narrative 05/18/2025 8:08 PM UI DEVELOPER For Patients: As a result of the Century Cures Act, medical imaging exams and procedure reports are released immediately into your electronic medical record. You may view this report before your referring provider. If you have questions, please contact your health care provider. INDICATION: Pain. COMPARISON: Right lower extremity venous ultrasound 04/11/2014. TECHNIQUE: A compression venous ultrasound exam was performed of the right lower extremity using barraza-scale imaging, color Doppler, and spectral Doppler analysis. FINDINGS: Sonographic imaging of the right lower extremity demonstrates normal compressibility and color Doppler venous blood flow within the common femoral, femoral, deep femoral, and greater saphenous veins.At a lower level the popliteal, peroneal, and posterior tibial veins also show normal compressibility and color Doppler venous blood flow. There is thrombus in the gastrocnemius vein with incompressibility and lack of Doppler flow. Limited imaging of the contralateral groin demonstrates a normal spectral waveform and color Doppler venous blood flow within the left common femoral vein. Procedure Note Estrella Flores MD - 05/18/2025 For Patients: As a result of the Cures Act, medical imagingexams and procedure reports are released immediately into your electronicmedical record. You may view this report before your referring provider.If you have questions, please contact your health care provider. INDICATION: Pain. COMPARISON: Right lower extremity venous ultrasound 04/11/2014. TECHNIQUE: A compression venous ultrasound exam was performed of the right lowerextremity using barraza-scale imaging, color Doppler, and spectral Doppleranalysis. FINDINGS: Sonographic imaging of the right lower extremity demonstrates normal compressibility and color Doppler venous blood flow within the commonfemoral, femoral, deep femoral, and greater saphenous veins. At a lowerlevel the popliteal, peroneal, and posterior tibial veins also show normalcompressibility and color Doppler venous blood flow. There is thrombus inthe gastrocnemius vein with incompressibility and lack of Doppler flow. Limited imaging of the contralateral groin demonstrates a normal spectral waveform and color Doppler venous blood flow within the left commonfemoral vein. IMPRESSION: 1. Acute DVT in the right gastrocnemius vein. 2. Findings discussed with Dakota Cardoso at 8:08 p.m. on 05/18/2025. Dictated by Estrella Flores MD @ 05/18/2025 8:05:43 PM (Electronically Signed) Authorizing ProviderResult TypeResult StatusDakota Cardoso MDUSFinal Result * EXTRA TUBE BLUE (05/18/2025 7:01 PM UI DEVELOPER)Specimen (Source)Anatomical Location / LateralityCollection Method / VolumeCollection TimeReceived TimeBloodBLOOD SPECIMEN / UnknownIV Start / Obkiwrl8405/18/2025 7:01 PM CST05/18/2025 7:09 PM UI DEVELOPER Narrative Authorizing ProviderResult TypeResult StatusDakota Cardoso MDLABORATORY Final ResultPerforming OrganizationAddressCity/State/ZIP CodePhone Number [facility] [address] [place] [address] * XR RETROGRADE PYELOGRAM W/WO KUB (05/13/2025 8:39 PM UI DEVELOPER)Anatomical Region LateralityModalityKIDNEYS, AbdomenComputed RadiographySpecimen (Source) Anatomical Location / LateralityCollection Method / VolumeCollection Time Received Time05/13/2025 8:39 PM UI DEVELOPER Narrative 05/14/2025 12:31 AM UI DEVELOPER For Patients: As a result of the Cures Act, medical imaging exams and procedure reports are released immediately into your electronic medical record. You may view this report before your referring provider. If you have questions, please contact your health care provider. EXAM: XR RETROGRADE PYELOGRAM W/WO KUB LOCATION: [facility] DATE: 05/13/2025 INDICATION: Obstructing left ureteral stone; pain. COMPARISON: None available. TECHNIQUE: Exam performed by urologist. RADIATION DOSE: VLE 33.95 mGy FINDINGS: Images demonstrate opacification of the left upper collecting system with contrast, whichappears mildly dilated. Subsequent imaging demonstrates deployment of a double-J left ureteral stent. Procedure Note Hair Baum MD - 05/14/2025 For Patients: As a result of the Cures Act, medical imagingexams and procedure reports are released immediately into your electronicmedical record. You may view this report before your referring provider.If you have questions, please contact your health care provider. EXAM: XR RETROGRADE PYELOGRAM W/WO KUB LOCATION: [facility] DATE: 05/13/2025 INDICATION: Obstructing left ureteral stone; pain. COMPARISON: None available. TECHNIQUE: Exam performed by urologist. RADIATION DOSE: VEL 33.95 mGy FINDINGS: Images demonstrate opacification of the left upper collectingsystem with contrast, which appears mildly dilated. Subsequent imagingdemonstrates deployment of a double-J left ureteral stent. Authorizing ProviderResult TypeResult StatusNicholas Saran Rebollar MDGENERAL IMAGINGFinal Result * (ABNORMAL) CBC W PLT NO DIFF (05/13/2025 8:14 AM UI DEVELOPER)ComponentValueRef Range Test MethodAnalysis TimePerformed AtPathologist SignatureWHITE BLOOD COUNT13.1 (H)4.5 - 11.0 thou/cu mm05/13/2025 8:[address] [facility] LABORATORYRED BLOOD COUNT3.80(L)4.30 - 5.90 mil/cu mm05/13/2025 8:[address] [facility] WTMVIONQYADHZHQCIGAV43.8(L)13.5 - 17.5 g/dL05/13/2025 8:[address] [facility] WKEQRXOJWMGHIFPMDKGU99.737.0 - 53.0 %05/13/2025 8:[address] [facility] EHIKIHSFUWDNF4999 - 100 fL05/13/2025 8:[address] [facility] ZRURWHOVVXLOV90.726.0 - 34.0 pg05/13/2025 8:[address] [facility] OUXVDQPRPAQSCE57.032.0 - 36.0 g/dL05/13/2025 8:[address] [facility] FFOJAUCTSFAIF22.211.5 - 15.5 %05/13/2025 8:[address] [facility] PLATELET [id number] - 440 thou/cu mm05/13/2025 8:[address] [facility] LABORATORYMPV9.56.5 - 11.0 fL05/13/2025 8:[address] [facility] NRBC0.0%05/13/2025 8:[address] [facility]ORATORYABS NRBC0.0thou /cu mm 05/13/2025 8:[address] [facility] LABORATORYSpecimen (Source)Anatomical Location / LateralityCollection Method / VolumeCollection TimeReceived Time BloodBLOOD SPECIMEN / UnknownVenipuncture / Plnkdde9905/13/2025 8:14 AM UI DEVELOPER 05/13/2025 8:18 AM UI DEVELOPER Narrative Authorizing ProviderResult TypeResult StatusEllen Merna Snow MDHEMATOLOGY Final ResultPerforming OrganizationAddressCity/State/ZIP CodePhone Number [facility] [place] [phone] [place] [address] * SODIUM (05/13/2025 8:14 AM UI DEVELOPER)ComponentValueRef RangeTest MethodAnalysis Time Performed AtPathologist [id number] - 145 mmol/L107/13/2024 8:[address] [facility] LABORATORYSpecimen (Source)Anatomical Location / Laterality Collection Method / VolumeCollection TimeReceived TimeBloodBLOOD SPECIMEN / UnknownVenipuncture / Mvjkajt1205/13/2025 8:14 AM CST05/13/2025 8:18 AM UI DEVELOPER Narrative Authorizing ProviderResult TypeResult StatusEllen Merna Snow MDCHEMISTRY Final ResultPerforming OrganizationAddressCity/State/ZIP CodePhone Number [facility] SENDOUT [place] [address] [phone] [place] [address] * XR SPINE LUMBAR 2 VIEWS (05/12/2025 10:21 AM UI DEVELOPER)Anatomical RegionLaterality ModalityLUMBAR SPINEDigital RadiographySpecimen (Source)Anatomical Location / LateralityCollection Method / VolumeCollection TimeReceived Time05/12/2025 10:44 AM UI DEVELOPER Impressions 05/12/2025 10:44 AM UI DEVELOPER No acute traumatic injuries identified. Incidental findings detailed in the body of the report. Dictated by Zak Hurt MD @ 05/12/2025 10:44:53 AM (Electronically Signed) Narrative 05/12/2025 10:44 AM UI DEVELOPER For Patients: As a result of the Cures Act, medical imaging exams and procedure reports are released immediately into your electronic medical record. You may view this report before your referring provider. If you have questions, please contact your health care provider. INDICATION: Trauma. COMPARISON: None available. TECHNIQUE: Two views of the lumbar spine. FINDINGS: Normal alignment. No widening of the intervertebral disc spaces, facet joints, interspinous distances or spondylolisthesis. Well maintained vertebral body heights. Mild multilevel chronic lumbar disc degeneration. L4-L5 and L5-S1 facet joint osteoarthrosis. Normal paraspinal soft tissues. The pelvis is intact. No acute traumatic injury of the proximal femurs is identified. Apparent right iliac artery radiopaque vascular grafts (correlate with the patient`s clinical history) and a left common iliac artery stent are noted. Procedure Note Zak Hurt MD - 05/12/2025 For Patients: As a result of the Cures Act, medical imagingexams and procedure reports are released immediately into your electronicmedical record. You may view this report before your referring provider.If you have questions, please contact your health care provider. INDICATION: Trauma. COMPARISON: None available. TECHNIQUE: Two views of the lumbar spine. FINDINGS: Normal alignment. No widening of the intervertebral disc spaces, facetjoints, interspinous distances or spondylolisthesis. Well maintained vertebral body heights. Mild multilevel chronic lumbar disc degeneration. L4-L5 and L5-S1 facetjoint osteoarthrosis. Normal paraspinal soft tissues. The pelvis is intact. No acute traumatic injury of the proximal femurs is identified. Apparent right iliac artery radiopaque vascular grafts (correlate with the patient`s clinical history) and a left common iliac artery stent arenoted. IMPRESSION: No acute traumatic injuries identified. Incidental findings detailed inthe body of the report. Dictated by Zak Hurt MD @ 05/12/2025 10:44:53 AM (Electronically Signed) Authorizing ProviderUT [facility] July Gentile MDGENERAL IMAGINGFinal Result * BETA HYDROXYBUTYRATE IN HOUSE (05/12/2025 9:45 AM UI DEVELOPER)ComponentValueRef Range Test MethodAnalysis TimePerformed AtPathologist SignatureBETA HYDROXYBUTYRATE <0.6<0.6 mmol/L107/12/2024 9:56 AM [facility] Specimen (Source)Anatomical Location / LateralityCollection Method / Volume Collection TimeReceived TimeBloodBLOOD SPECIMEN / UnknownVenipuncture / Zenxwpx3305/12/2025 9:45 AM CST05/12/2025 9:48 AM UI DEVELOPER Narrative Authorizing ProviderUT [facility] July Gentile MDSEND OUTSFinal ResultPerforming OrganizationAddressCity/State/ZIP CodePhone Number [facility] [address] [place] [address] * LIPID PANEL W REFLEX MEASURED LDL (01/12/2024 3:31 PM CDT)ComponentValueRef RangeTest MethodAnalysis TimePerformed AtPathologist Signature CHOLESTEROL,[id number] - 199 mg/dL01/13/2024 3:01 PM CDJ[facility]-CENTRAL LABORATORYComment: Cholesterol, Total Reference Ranges Desirable <200 mg/dL Borderline 200-239 mg/dL High >=240 mg/dL NUMJVNFVLUEXK31<150 mg/dL01/13/2024 3:01 PM CDJ[facility] LAB[facility]-CENTRAL LABORATORYHDL HVALFEHHJDM32>40 mg/dL01/13/2024 3:01 PM [facility] LABORAT[facility]-CENTRAL LABORATORYNON-HDL NUXKOBCAIKM60<145 mg/dl01/13/2024 3:01 PM [facility]-CENTRAL LABORATORYCHOL/HDL RATIO2.49<4.50001/13/2024 3:01 PM [facility]-CENTRAL LABORATORYLDL SCVWAWYVFPO36<=130 mg/dL01/13/2024 3:01 PM [facility] LABORATORYVLDL XBANKNRXXYT60<=30 mg/dL01/13/2024 3:01 PM [facility]-CENTRAL LABORATORYPROVIDER ORDERED HRTMCIRDIJZA50/26/2024 3:01 PM [facility]-CENTRAL LABORATORYSpecimen (Source)Anatomical Location / Laterality Collection Method / VolumeCollection TimeReceived TimeBloodBLOOD SPECIMEN / UnknownVenipuncture / Bwrjtun2001/12/2024 3:31 PM CDT01/12/2024 3:32 PM CDT Narrative Authorizing ProviderResult TypeResult StatusWilliam Hair Valderrama MDCHEMISTRY Final ResultPerforming OrganizationAddressCity/State/ZIP CodePhone Number [facility] LAB[facility] [address] [place] [address], * SDNA-FIT EXTERNAL (COLOGUARD) (02/28/2023 3:10 PM CDT)ComponentValueRef Range Test MethodAnalysis TimePerformed AtPathologist SignatureNONINV COLON CA DNA+OCC BLD SCRN STL-DLUEumomuxgCpzdfamm85/18/2023 9:08 AM CDTEXPlayWith (CLIA #:[id number])Comment: NEGATIVE TEST RESULT. A negative Cologuard result indicates a low likelihood that a colorectal cancer (CRC) or advanced adenoma (adenomatous polyps with more advanced pre-malignant features) ??is present. The chance that a person with a negative Cologuard test has a colorectal cancer is less than 1in 1500 (negative predictive value >99.9%) or has an advanced adenoma is less than 5.3% (negative predictive value 94.7%). These data are based on a prospective cross-sectional study of 10,000individuals at average risk for colorectal cancer who were screened with both Cologuard and colonoscopy. (Mar Latham al, N Engl J Med 2014;370(14):9579-9063) The normal value (reference range) for this assay is negative. COLOGUARD RE-SCREENING RECOMMENDATION: Periodic colorectal cancer screening is an important part ofpreventive healthcare for asymptomatic individuals at average risk for colorectal cancer. ??Following a negative Cologuard result, the [place] [employer] and U.S. Multi-Society Task Force screening guidelines recommend a Cologuard re-screening interval of 3 years. References: [place] [employer] Guideline for Colorectal Cancer Screening: https://www.cancer.or g/cancer/dlzml-eqttic-vqfprk/mdsjqsryv-fsizmtrqo-nekmqkf/acs-recommendations.htm lyn; Paul ARCEO, Joao GRUBER, Kevin DiehlK, Colorectal Cancer Screening: Recommendations for Physicians and Patients from the U.S. Multi-Society Task Force on Colorectal Cancer Screening , Am J Gastroenterology 2017; 112:3895-2891. TEST DESCRIPTION: Composite algorithmic analysis of stool DNA-biomarkers with hemoglobin immunoassay. ?? Quantitative values of individual biomarkers are not reportable and are not associated with individual biomarker result reference ranges. Cologuard is intended for colorectal cancer screening ofadults of either sex, 45 years or older, who are at average-risk for colorectal cancer (CRC). Cologuard has been approved for use by the U.S. FDA. The performance of Cologuard was established in a cross sectional study of average-risk adults aged 50-84. Cologuard performance in patients ages 45 to 49 years was estimated by sub-group analysis of near-age groups. Colonoscopies performed for a positive result may find as the most clinically significant lesion: colorectal cancer [4.0%], advanced adenoma (including sessile serrated polyps greater than or equal to 1cm diameter) [20%] or non- advanced adenoma [31%]; or no colorectal neoplasia [45%]. These estimates are derived from a prospective cross-sectional screening study of 10,000 individuals at average risk for colorectal cancer who were screened with both Cologuard and colonoscopy. (Mar Alonso, N Engl J Med 2014;370(14):9749-3267.) Cologuard may produce a false negative or false positive result (no colorectal cancer or precancerous polyp present at colonoscopy follow up). A negative Cologuard test result does not guarantee the absence of CRC or advanced adenoma (pre-cancer). The current Cologuard screening interval is every 3 years. ([place] [employer] and U.S. Multi-Society Task Force). Cologuard performance data in a 10,000 patient pivotal study using colonoscopy as the reference method can be accessed at the following location: www.FastFig.Ixtens/results. Additional description of the Cologuard test process, warnings and precautions can be found at www.cologuard.com. Specimen (Source)Anatomical Location / LateralityCollection Method / Volume Collection TimeReceived TimeStool specimen (specimen) (Rectum)02/28/2023 3:10 PM CDT03/01/2023 8:42 PM CDT Narrative Authorizing ProviderResult TypeResult StatusWihelen Valderrama MDURINEFinal ResultPerforming OrganizationAddressCity/State/ZIP CodePhone Number [facility] (CLIA #:[id number]) [place] [address], * ACUTE HEPATITIS PANEL (08/18/2005 10:30 AM UI DEVELOPER)ComponentValueRef RangeTest MethodAnalysis TimePerformed AtPathologist SignatureHBSAGNon-reactiveMEMORIVA BLOOD CENTERIGM ANTI HBCNon-reactiveMEMEMORIAL HOSPITAL OF [facility] BLOOD CENTERIGM ANTI HAV Non-reactiveTRINITY HEALTH SYSTEM BLOOD CENTERANTI HCVNon-reactiveTRINITY HEALTH SYSTEM BLOOD CENTER Specimen (Source)Anatomical Location / LateralityCollection Method / Volume Collection TimeReceived TimeBlood specimen (specimen)BLOOD SPECIMEN / Unknown 08/18/2005 10:30 AM CST08/18/2005 10:16 AM UI DEVELOPER Narrative [facility] - 08/23/2005 12:47 PM UI DEVELOPER Testing Performed By [place], [place] Authorizing ProviderResult TypeResult StatusYvon AVILES OUTSFinal ResultPerforming OrganizationAddressCity/State/ZIP CodePhone Number [facility] [address] [place] [phone] from Last 3 Months or Most Recently Relevant to Health Maintenance Insurance Advance Directives * Full Code (Latest Code Status on File) Date ActivatedDate JykozlwhlfuUqbbptig55/2/2025 10:33 AM12/07/2024 5:21 PM QuestionAnswerCommentsCode Status Discussion:* Reviewed Preferences * Full Code Date ActivatedDate ZvkzjyarmbhUcflrzbl99/1/2025 9:31 AM05/21/2025 10:33 AM QuestionAnswerCommentsCode Status Discussion:* Unable to Assess Preferences, Provider to review later * Full Code Date ActivatedDate LcemcbfjrygPpoyprqv08/23/2025 11:00 PM05/15/2025 2:12 PM QuestionAnswerCommentsCode Status Discussion:* Reviewed Preferences * Full Code Date ActivatedDate WhgszhivuowKtulphlz71/23/2025 10:20 PM05/12/2025 11:00 PM QuestionAnswerCommentsCode Status Discussion:* Unable to Assess Preferences, Provider to review later * Full Code Date ActivatedDate InactivatedComments09/25/2020 3:24 PM09/30/2020 1:26 PMQuestion AnswerCommentsCode Status Discussion:* Not Discussed Care Teams Team MemberRelationshipSpecialtyStart DateEnd Date Votel, Alex Arndt MD [address] [place] [address] PCP - GeneralFamily Practice12/28/23
[2025-06-09 22:24] VITALS: BP 128/72; PULSE 85; RESP 16; TEMP 36.6; O2SAT 99; BMI 31.0
[2025-06-09 23:16] VITALS: PULSE 64; RESP 16; O2SAT 98
--- NOTE | 2025-06-09 23:38 | ED.GENADULT ---
HPI - General Adult General Date Seen: 06/09/25 Chief complaint: Anxiety Stated complaint: Kidney stone, reaction pain med? Time Seen by Provider: 06/09/25 23:27 History of Present Illness HPI narrative: 59-year-old male presenting to the ER today with a weird anxious feeling and nausea and vomiting. History is little bit limited from the patient because he is feeling weird and a little bit disorganized with his history. He is able to tell me that he was diagnosed with a kidney stone last month at the hospital in [place] and then was transferred to [facility] where he had a stent. It sounds like his stone was complicated by an infection. He was then rehospitalized later (possibly early May). He has been on oxycodone for his stent pain all month. Because he is on Eliquis for blood clots, apparently his urologist needs to delay his stent removal procedure until June 25. He has been noticing intermittent visible hematuria off and on for the past several weeks. He says his left lower quadrant and left back hurt a lot from his stent. He saw his regular doctor and was asking for additional time off work but apparently his doctor made him go back to work. He works here in [place] went to work this evening. He has also been noticing that he is having a lot of dysuria lately. Today before work is dysuria was worse so he took sign oxycodone around 5:00 p.m.. He had ongoing dysuria and abdominal pain tonight so took an additional cause any oxycodone around 7:00 p.m.. It sounds like he is only supposed take 1 oxycodone every 6 hours and it does not sound like he has normally takes it at the 2 hour interval. Later work he started to feel very off and dizzy. He was sweaty, a little bit nauseous and just felt like something was weird in his body, but he cannot really tell me what was weird. He was not having chest pain. He was not having palpitations. He got very anxious and was worried that he might pass out so he asked his boss to bring him here to the ER. He says he feels like he is ?climbing the ring. ?. He also feels like his heart might be racing. He felt a little bit dizzy. Per [facility] medical record through [facility] he has a history of DVT, peripheral vascular disease, hypertension, elevated, type 2 diabetes. He is on Eliquis, baby aspirin. Per the medical record he was hospitalized at [facility] 05/20/2012/ for left flank pain. He apparently had a kidney stone and had a ureteral stent placed 05/12/2025. He was admitted to the hospital at [place] on 05/20 because of pain in that area. Workup in the ER showed leukocytosis, clear urinalysis. Per discharge summary dated 05/21 Ismael Marie is a(n) 59 y.o. with a history of stone s/p ureteral stent on 05/12/25, who was admitted on 05/20/2025 with pain in this area. ? ED evaluation noted elevated WBC, UA today ok, pain control visit 2d ago with urine culture no growth. Urologist says nothing procedural needed at this time. Flomax and oxybutynin daily recommended, patient hadn't picked up his flomax yet. NSAIDs per urology but on eliquis for recent DVT since 05/18/25. Urology arranging for ureteroscopy this week locally. ? Patient lives alone, scared for the pain, would like to be hospitalized for a prolonged period because of this. Doesn't have a HCD but would like to be full code. Working but currently on short term disability for this. Pain controlled, urology wanting him off eliquis for the procedure, likely 2-3 months per paola consult with hematology. Will defer to primary care physician/provider when he's ready to have his urology procedure or if bridging is appropriate. ? Patient and his mother are concerned that he may have pain after discharge, multiple reassurances that his pain has been controlled here with the medications he's getting discharged with. Per discharge summary from initial hospitalization 05/12/2026 Ismael Marie is a(n) 59 y.o. with a history of DVT 2004, DM2, HTN, HLD who was admitted on 05/12/2025 with left ureteral obstructing stone. ? Patient initially presented to [place] ED on 05/12/2025 for 6 weeks of lower back pain with some nausea. CT abdomen demonstrated left ureteral stone with evidence of obstructive uropathy including perinephric and periureteral edema. Leukocytosis of 16. Renal function stable. He was given dose of ibuprofen and discharged home with pain controlled. ? He re-presented to the [place] ED later that day (05/12) due to persistent vomiting and unable to get pain control at home. Urology was paged who recommended transfer for further evaluation. Urology requesting patient to be n.p.o. at midnight for potential stenting in the AM. ? On arrival to [place], patient was hemodynamically stable. Having mild left flank pain and nausea. No emesis since arrival. Urine culture negative. He was treated with IV Ceftriaxone 2 gram daily, went to the OR on 05/13 for cystoscopy and left ureteral stent placement. Remained in the hospital for pain control and is discharging home with 5 additional days of oral antibiotics. Patient will need to return to the hospital for more definitive stone treatment. Related Data Home Medications ?Medication ?Instructions ?Recorded ?Confirmed apixaban 5 mg tablet (Eliquis) 5 mg PO BID 06/09/25 06/09/25 hydroxyzine HCl 50 mg tablet mg PO 06/09/25 lisinopril 10 mg tablet 10 mg PO DAILY 06/09/25 06/09/25 metformin 1,000 mg tablet 1,000 mg PO BID 06/09/25 06/09/25 methocarbamol 500 mg tablet 500 mg PO 3XD 06/09/25 06/09/25 oxycodone 5 mg tablet 5 mg PO QID PRN 06/09/25 06/09/25 rosuvastatin 10 mg tablet 10 mg PO QPM 06/09/25 06/09/25 tamsulosin 0.4 mg capsule PO 06/09/25 Allergies Allergy/AdvReac Type Severity Reaction Status Date / Time No Known Drug Allergies Allergy Verified 06/09/25 22:29 Exam Narrative: Exam Narrative: Constitutional: Appears well-developed and well-nourished. Alert. Conversant, but disjointed historian. Jumps rapidly from talk his topic. He is redirectable. He apologizes and says that he just can not collect his thoughts and does not feel quite right. Overall he is ambulatory, cooperative, robust-appearing, and Non toxic. HENT: Head: Atraumatic. Nose: Nose normal. Mouth/Throat: Oral mucosa is clear and moist. no trismus. Pharynx normal. Tonsils symmetric. No tonsillar enlargement, erythema, or exudate. Eyes: Conjunctivae normal. EOM normal. Pupils equal, round, and reactive to light. No scleral icterus. Neck: Normal range of motion. Neck supple. No tracheal deviation present. No JVD Cardiovascular: Normal rate, regular rhythm. No gallop. No friction rub. No murmur heard. Symmetric radial artery pulses . Normal distal cap refill. No pallor, cyanosis, diaphoresis, mottling. Pulmonary/Chest: Effort normal. No stridor. No respiratory distress. No wheezes. No rales. No rhonchi . No tenderness. Abdominal: Soft. Bowel sounds normal. No distension. No mass. No tenderness. No rebound. No guarding. No bruising. Musculoskeletal: RUE: Normal range of motion. No tenderness. No deformity LUE: Normal range of motion. No tenderness. No deformity RLE: Normal range of motion. No edema. No tenderness. No deformity LLE: Normal range of motion. No edema. No tenderness. No deformity Neurological: Alert and oriented to person, place, and time. Normal strength. CN II-VII intact. No sensory deficit. GCS eye subscore is 4. GCS verbal subscore is 5. GCS motor subscore is 6. Normal coordination Skin: Skin is warm and dry. No rash noted. No pallor. Normal capillary refill. Psychiatric: Anxious. Somewhat disjointed historian. At the same time he is apologetic and polite. Const: Vital Signs, click to edit/add: Vital Signs - 24 hr 06/09/25 22:24 06/09/25 23:16 Temperature 98 F Pulse Rate [Pulse Oximeter] 85 64 Respiratory Rate 16 16 Blood Pressure [Ri ght Upper Arm] 128/72 Pulse Oximetry 99 98 Oxygen Delivery Me thod Room Air Room Air Course Course ED Course: Recheck-ambulatory in hallway after coming back from CT. Reevaluation(s) Reevaluation #1: Recheck-sitting up in his chair. Mother is bedside. Discussed results showing leukocytosis, CT scan showing hydro nephrosis and ureteral nephrosis on that left side suggesting possible new obstruction of stent. Also perinephric stranding. Urinalysis is abnormal which could indicate possible UTI, but is also often seen just simply with an indwelling stent. Although he is not febrile he just feels little bit hot and a little bit often dizzy. Unclear if there is definitively an active infection, but certainly would be at risk for developing severe pyelonephritis. Will start on Rocephin 2 g IV now. Patient is agreeable to treatment and hospitalization. Discussed with the [facility] access center to see if we can get him transferred to [facility] with a urologist. Unfortunately there are no open beds at this time. He is on the wait list. The [facility] access center anticipates they will be open beds after 7:00 a.m. this morning (about 6 hours from now). Discussed with my partner, Dr. Zavala who will monitor here in the ER overnight until the patient can be transferred. Vital Signs Vital signs: Initial Vital Signs Temperature 98 F 06/09/25 22:24 Temperature Source Temporal Artery Scan 06/09/25 22:24 Pulse Rate 85 06/09/25 22:24 Respiratory Rate 16 06/09/25 22:24 Blood Pressure 128/72 06/09/25 22:24 Blood Pressure Mean 90 06/09/25 22:24 Blood Pressure Position Sitting 06/09/25 22:24 Pulse Oximetry 99 06/09/25 22:24 Oxygen Delivery Method Room Air 06/09/25 22:24 Vital Signs Temperature 98 F 06/09/25 22:24 Pulse Rate 85 06/09/25 22:24 Respiratory Rate 16 06/09/25 22:24 Blood Pressure 128/72 06/09/25 22:24 Pulse Oximetry 99 06/09/25 22:24 Oxygen Delivery Method Room Air 06/09/25 22:24 Temperature 98 F 06/09/25 22:24 Pulse Rate 64 06/09/25 23:16 Respiratory Rate 16 06/09/25 23:16 Blood Pressure 128/72 06/09/25 22:24 Pulse Oximetry 98 06/09/25 23:16 Oxygen Delivery Method Room Air 06/09/25 23:16 Medications Administered Medications: Generic Name Dose Route Start Last Admin Trade Name Freq PRN Reason Stop Dose Admin Ceftriaxone Sodium 2 gm/ 100 mls @ 200 mls/hr 06/10/25 01:38 06/10/25 01:42 Sodium Chloride IVPB 06/10/25 02:07 200 mls/hr ONCE ONE Administration Discontinued Medications Generic Name Dose Route Start Last Admin Trade Name Freq PRN Reason Stop Dose Admin Sodium Chloride 500 mls @ 500 mls/hr 06/10/25 00:08 06/10/25 01:45 0.9 % Sodium Chloride 500 Ml IV 06/10/25 01:07 Infused .Q1H ONE Infusion Medical Decision Making MDM Narrative Medical decision making narrative: Pleasant 59-year-old gentleman with complex medical history including peripheral artery disease with lower extremity arterial stents history of DVT on Eliquis, and recent kidney stone (complicated by urinary tract infection) resulting and left ureteral stenting by [place] [facility], procedure done at [facility]. He still has the stent in place coming up on a month later in his still been experiencing intermittent gross hematuria and a lot of pain so he still on oxycodone. However his doctors have instructed him that it is okay to go back to work. He was at work tonight and having increased dysuria and pain so took 2 oxycodone over 2 hours (is that of 1 every 6 hours) and after that felt very odd, dizzy, anxious, sweaty. He asked his boss to bring him to the ER. Although it is possible that his dizziness an odd feeling were at effects of the opiate he took, a broad differential is considered We placed the patient on a bariatric nurse and obtain EKG to make sure there was not any arrhythmia or cardiac ischemia causing his symptoms. He does have history of diabetes. He did not check his blood sugar tonight. We did check labs including glucose and it is normal. Glucose 135. BUN 16, creatinine 0.9. He is not having any chest pain, shortness of breath, hypoxia, or tachycardia to suggest that he has a PE or other VT event. With his recent kidney stone and stenting we did obtain a new CT to make sure there was no sign of trouble such as new obstructing stone, stent malposition, perinephric abscess, or other pathology. CT scan shows no definite acute change in the position of his stone or stent. But does show hydronephrosis and hydroureter and signs of perinephric stranding which could represent an ascending urinary tract infection. White blood cell count is elevated at 15. Urinalysis shows lots of blood, 3+ leukocyte esterase,> 100 white cells and red cells, also many bacteria, yeast. This certainly is concerning for potentially a evolving urinary infection and possibly a new obstruction of his urinary stent. He will need admission for IV antibiotics to a facility where Urology consultation is available. I have contacted the [facility]. Unfortunately there are no open beds at any other facilities tonight. They placed the patient on wait list in the anticipate that there will be an open bed later this morning (after 7:00 a.m., 5 hours from now). Discussed this plan of care with patient and his mother and they are in agreement. Lab Data Labs: Lab Results 06/10/25 06/10/25 06/10/25 Range/Units 00:08 00:09 00:37 WBC 15.29 H (4.50-11.00) K/uL RBC 4.21 L (4.30-5.90) m/uL Hgb 13.9 (13.5-17.5) gm/dL Hct 41.2 (37.0-53.0) % MCV 98 (80-100) fL MCH 33 (26-34) pg MCHC 34 (32-36) gm/dL RDW Coeff of Marley 12.2 (11.5-15.5) % Plt Count 251 (140-440) K/uL Neut % (Auto) 89.2 H (42.0-72.0) % Lymph % (Auto) 6.2 L (20-44) % [place] % (Auto) 3.3 (0.0-11.0) % Eos % (Auto) 0.1 (0.0-7.0) % Baso % (Auto) 0.3 (0.0-3.0) % Neut # (Auto) 13.60 H (1.7-7.0) K/uL Lymph # (Auto) 0.90 (0.90-2.90) K/uL [place] # (Auto) 0.50 (0.00-0.90) K/UL Eos # (Auto) 0.00 (0.00-0.50) K/uL Baso # (Auto) 0.00 (0.00-0.30) K/uL Abs Immat Gran (auto) 0.10 (0.00-0.30) K/uL Imm/Tot Granulo (auto) 0.9 % Sodium 135 (135-149) mmol/L Potassium 4.2 (3.6-5.1) mmol/L Chloride 104 (96-114) mmol/L Carbon Dioxide 21 (20-32) mmol/L Anion Gap 10 (7-15) mEq/L BUN 16 (7-30) mg/dL Creatinine 0.9 (0.5-1.5) mg/dL Estimated Creat Clear 77.57 Estimated GFR 97 ml/min Glucose 135 H (60-115) mg/dL Calcium 9.2 (8.4-10.6) mg/dL POC Troponin I High Sensi 3.1 (2.9-28.0) pg/mL Urine Color Red A (Yellow) Urine Appearance Cloudy A (Clear) Urine pH 5.5 (5.0-8.5) Ur Specific [place] 1.020 (1.000-1.030) Urine Protein 3+ A (Negative) Urine Glucose (UA) Trace A (Negative) Urine Ketones 2+ A (Negative) Urine Blood 3+ A (Negative) Urine Nitrite Negative (Negative) Urine Bilirubin 3+ A (Negative) Urine Urobilinogen 4.0 A (0.2-1.0) Ur Leukocyte Esterase 3+ A (Negative) Urine RBC >100 A (0-2) Urine WBC >100 A (0-5) Ur Squamous Epith Cells Moderate A (None-Few) Calcium Oxalate Crystal Few A (None) Urine Bacteria Many A (None) Urine Starch Few A (None) Urine Yeast Moderate A (None) ECG Data Attestation: I personally reviewed and interpreted this ECG as follows: Interpretation: Normal sinus rhythm Rate 60 NH interval 182. No delta waves Normal QRS axis. No acute ST segment elevation or depression. There is wandering baseline artifact QT 422, QTC 422 Discharge Plan Discharge Clinical Impression: Acute UTI, Occlusion of ureteral stent, Kidney stone Patient Disposition: Xfer Other Prescriptions: No Action methocarbamol 500 mg tablet 500 mg PO 3XD hydroxyzine HCl 50 mg tablet PO tamsulosin 0.4 mg capsule PO metformin 1,000 mg tablet 1,000 mg PO BID lisinopril 10 mg tablet 10 mg PO DAILY oxycodone 5 mg tablet 5 mg PO QID PRN rosuvastatin 10 mg tablet 10 mg PO QPM Eliquis 5 mg tablet 5 mg PO BID Stand Alone Forms: [employer] Info Instructions
[2025-06-10] VITALS (101 sets, daily range): BP systolic 101–146; BP diastolic 44–80; PULSE 47–88; RESP 12–18; O2SAT 90–98
--- NOTE | 2025-06-10 00:08 | CRLHL7_ITS ---
For Patients: As a result of the Century Cures Act, medical imaging exams and procedure reports are released immediately into your electronic medical record. You may view this report before your referring provider. If you have questions, please contact your health care provider. INDICATION: Flank pain and dysuria. TECHNIQUE: CT abdomen and pelvis without contrast. COMPARISON: CT abdomen pelvis 05/20/2025. FINDINGS: Lower chest: Unremarkable. Liver: Unremarkable. Gallbladder and bile ducts: Cholelithiasis without acute cholecystitis. Pancreas: Unremarkable. Spleen: Unremarkable. Adrenal glands: Unremarkable. Kidneys: Left nephroureteral stent unchanged in position. Left mid ureteral calculus measuring 3 mm also unchanged in position. Grossly unchanged left-sided hydronephrosis and hydroureter. Additional left renal calculi are grossly unchanged in position. Redemonstrated left-sided perinephric and periureteral fat stranding. No right-sided hydronephrosis or hydroureter. No right urinary calculi. GI tract: Colonic diverticulosis without acute diverticulitis. No bowel obstruction. No suspicious bowel wall thickening. No CT evidence of acute appendicitis. Vasculature: No abdominal aortic aneurysm. Atherosclerotic calcifications of the abdominal aorta and its major branches. Bilateral iliac stenting. Unchanged right internal iliac artery aneurysm Lymph nodes: No suspicious lymphadenopathy. Peritoneum/Abdominal Wall: No ascites or pneumoperitoneum. No acute abdominal wall abnormality. Fat containing ventral abdominal wall hernia. Pelvis: Normal bladder. Unremarkable prostate and seminal vesicles. Bones: No acute abnormality. IMPRESSION: 1. Grossly unchanged left mid ureteral calculus measuring 3 mm with similar-appearing left-sided hydronephrosis/hydroureter and left-sided perinephric/periureteral fat stranding. Correlate for persistent or recurrent ascending urinary tract infection. 2. Cholelithiasis without CT evidence of acute cholecystitis. 3. Colonic diverticulosis without acute diverticulitis. Please note that all CT scans at this facility use dose modulation, iterative reconstruction, and/or weight-based dosing when appropriate to reduce radiation dose to as low as reasonably achievable. Dictated by Juan Jacob MD @ 06/10/2025 12:32:44 AM (Electronically Signed)
[2025-06-10 00:51] LABS: Hematocrit* 41.2 % (37.0-53.0); Hemoglobin* 13.9 gm/dL (13.5-17.5); Immature Granulocytes Pct Auto 0.9 %; Mean Corpuscular HGB Conc 34 gm/dL (32-36); Mean Corpuscular Hemoglobin 33 pg (26-34); Mean Corpuscular Volume 98 fL (80-100); RDW Coefficient of Variation % 12.2 % (11.5-15.5); Red Blood Count* 4.21 m/uL (4.30-5.90); White Blood Count* 15.29 K/uL (4.50-11.00)
[2025-06-10 00:53] LABS: Immature Granulocytes Abs Auto 0.10 K/uL (0.00-0.30); Lymphocytes Absolute Auto 0.90 K/uL (0.90-2.90); Slide Review Reflex No
[2025-06-10] MEDS: 0.9 % SODIUM CHLORIDE 500 ML 500 ML IV (00:55)
--- OUTSIDE RECORDS SUMMARY | 2025-06-10 01:20 | XMS_ITS | Clinical Summary ---
Author Organization [employer] [facility] Address [address] [place] [phone] Care Team Providers Care Fire Patrol Name Role Phone VotelAlex MD Primary Care Provider + Allergies No known active allergies Medications MedicationSigDispense QuantityRefillsLast FilledStart DateEnd DateStatus aspirin (ECOTRIN) 81 mg enteric coated tablet Take 1 Tablet (81 mg) by mouth once daily with a meal.ctive multivitamin (MVI) tablet Take 1 Tablet by mouth once daily.ctive lancets (OralWiseTouch Delica Plus Lancet) 30 gauge [facility] Indications:New onset type 2 diabetes mellitus (HC)As [...] severe pain.). 8 Tablet 05/15/2025 11:56 AM [facility]/Discontinued(Reorder (E-cancel not sent)) ciprofloxacin (CIPRO) 500 mg tablet Indications:urinary tract infectionTake 1 Tablet (500 mg) by mouth two times daily before meals for 5 days. 10 Tablet 05/15/2025 11:56 AM [facility] SERVICESDiscontinued(*IP Discontinued) acetaminophen (TYLENOL EXTRA STRGTH) 500 mg tablet Indications:Left ureteral stoneTake 2 Tablets (1,000 mg) by mouth three times daily for 10 days. Max acetaminophen dose: 4000mg in24 hrs. 60 Tablet 05/15/2025 11:56 AM [facility] SERVICESExpired methocarbamoL 500 mg tablet Indications:Left ureteral stone,PainTake [...] ureteral stent05/20/2025Leukocytosis 05/15/2025History of DVT (deep vein thrombosis)05/12/20252485Cztvahqlaoov81/23/2025 Left ureteral stone05/12/2025Pneumonia due to COVID-19 virus09/25/2020Morbid obesity with BMI of 40.0-44.9, adult09/25/2020lass 1 obesity in adult09/25/2020 Peripheral vascular disease, unspecifiedHISTORY OF PULMONARY EMBOLISM/INFARCT Other and unspecified hyperlipidemiaPersonal history of tobacco use, presenting hazards to healthHYPOALPHALIPOPROTEINEMIAType 2 diabetes mellitus, without long- term current use of insulin Resolved Problems ProblemNoted DateDiagnosed DateResolved DateSinoatrial node dysfunction /cute type 1 respiratory gxuptkz19/HX OF ARTERIAL EMBOLISM/THROMBOSIS LOWR EXTR01/12/2024 Encounters DateTypeDepartmentCare SuunLwvarrgxdtx48/19/2025Telephone [facility] [address] [place] [address] Alex Valderrama MD Other05/30/2025Telephone [facility] [address] [place] [address] Alex Valderrama MD Form05/30/2025Telephone [address] [address] VoteAlex james MD Medication Management (oxyCODONE)05/30/2025Telephone [address] [address] Alex Valderrama MD Refill Request (oxyCODONE )05/23/2025 2:30 PM CSTOffice Visit [facility] [address] [place] [address] Alex Valderrama MD [facility]/ (05/20-05/21 ureteral stent/05/12-05/15 Kidney stone )05/23/2025 Ffknot7505/22/2025Telephone [facility] [address] [place] [address] Rogers Patton MD Referral (KALYN)05/22/2025Patient Outreach [facility] [address] [place] [address] Beryl Suarez, RN Primary RN Care Management; [facility] (LACE 68)05/20/2025 5:20 AM COPIER AND PRINTER FIELD TECHNICIAN - 05/21/2025 3:15 PM CSTHospital Encounter [facility] [address] [place] [address] Jerry Pratt MD Hospitalist, [facility] Prabhjot Schaeffer, Kuldeep Lock DO Ureteral stent present (Primary Dx); Flank pain, unspecified laterality; Leukocytosis, unspecified type; Left ureteral stone; At risk for constipation Discharge Disposition: Home Self Care05/20/20252595Epmtrd03/29/2025 6:32 PM COPIER AND PRINTER FIELD TECHNICIAN - 05/18/2025 9:02 PM CSTEmergency [facility] [address] [place] [address] Dakota Cardoso MD Renal colic on left [...] unspecified type; Pyuria Discharge Disposition: Home Self Care05/18/20255161Xasgan28/29/2025Refill [address] [address] Lino Camejo MD Refill Yaphvza0405/17/2025Patient Outreach [facility] [address] [place] [address] Beryl Suarez, RN Primary RN Care Management; Hospital F/U (LACE 68)05/13/2025 7:51 PM COPIER AND PRINTER FIELD TECHNICIAN Anesthesia Event [address] [address] Javed Jurado MD Jensen, Andrew, FISHING VESSEL MATE Student 05/13/2025 6:50 PM COPIER AND PRINTER FIELD TECHNICIAN - 05/13/2025 8:01 PM CSTSurgery [address] [address] Kuldeep Rebollar MD CYSTOSCOPY PLACEMENT OF LEFT URETERAL STENT, LEFT RETROGRADE OUGOLTSSM41/23/2025 9:20 PM COPIER AND PRINTER FIELD TECHNICIAN - 05/15/2025 12:06 PM CSTHospital Encounter [address] [address] s, Hospitalist [facility] America Snow MD Alagappan, Priya, MD Left ureteral stone (Primary Dx); Pain Discharge Disposition: Home Self Care05/12/2025 4:47 PM COPIER AND PRINTER FIELD TECHNICIAN - 05/12/2025 8:59 PM [facility] [address] [place] [address] Avtar Grimm PA Friedman, Sara Emily, MD Renal colic on left side (Primary Dx); Ureterolithiasis Discharge Disposition: Short Term/PPS Hosp05/12/2025 9:20 AM COPIER AND PRINTER FIELD TECHNICIAN - 05/12/2025 12:43 PM [facility] [address] [place] [address] Mitra Gentile MD Kidney stone (Primary Dx) Discharge Disposition: Home Self Care05/12/20256394Bkdqcr31/09/2025Refill [facility] [address] [place] [address] Alex Valderrama MD Refill Request (Metformin)from Last 3 Months Immunizations ImmunizationAdministration DatesNext DueCOVID-19 vaccine (Pfizer-BioNTech 30mcg/0.3mL) 12YO+ BIVALENT PF, MDV12COVID-19 vaccine (Pfizer-BioNTech 30mcg/0.3mL) 12YO+ RO-SUCROSE PF, MDV2COVID-19 vaccine (Pfizer- BioNTech 30mcg/0.3mL) PF, MDV02/02/2021,01/09/2021Influenza A (H1N1), Bltpsxjpmsy66/19/2010Influenza A (H1N1), Inactivated (Age >=3 Years)07/08/2009 Influenza Virus, Islyuzakvsu08/04/2011Influenza, CCIIV3 (Age >=6 MO) (Egg Free) 03/12/2025,03/22/2024Influenza, IIV3 (Age >=3 years)04/03/2021,04/12/2014, 04/04/2013,04/14/2012,04/07/2011,04/08/2010,03/17/2009Influenza, IIV4 (=>6mos) MDV1Influenza, Whole Virus04/04/2017Influenza,CCIIV4 PRESERV FREE 04/16/2023,04/12/2022neumococcal Conj 20-valent (Prevnar 20)04/23/2022SV, Bivalent Vaccine Reconstituted (Abrysvo 120MCG/0.5mL)03/12/20250904Dyewhyo36/08/1980 Td (Age >=7 Years)11/27/2007,10/02/1976Tdap106/23/2021,11/27/2007Zoster (Shingrix-RZV, recombinant)03/09/2022,11/26/2021 Family History Medical HistoryRelationNameCommentsGood HealthFatherHeart DiseaseMaternal GrandfatherHeart DiseaseMaternal AhyvxcaxqfrFfzhjk-abzffsLwyyeuIqpgyh-dimjkj Sister 2RelationNameStatusCommentsFatherDeceasedMaternal GrandfatherDeceased Maternal GrandmotherDeceasedMotherAlivePaternal GrandfatherDeceasedPaternal GrandmotherDeceasedSister 1AliveSister 2 Social History Tobacco UseTypesPacks/DayYears UsedDateSmoking Tobacco: DjtgwdAybsdrhkxi448 06/17/1985 - 06/17/2005Smokeless Tobacco: FormerQuit: 01/06/1988 Tobacco Cessation:Counseling Given: Yes Alcohol UseStandard Drinks/WeekCommentsNo0 (1 standard drink = 0.6 oz pure alcohol)PHQ-2AnswerDate RecordedPHQ-2 TOTAL [id number] Connections AnswerDate RecordedDo you often feel lonely or isolated from those around you?0 05/20/2025lcohol UseAnswerDate RecordedHow often do you have a drink containing alcohol?verage Number of DrinksNot on file05/23/2025How often do you have five or more drinks on one occasion?Financial Resource Strain AnswerDate RecordedDifficulty of Paying Living Mujeojmz340/24/2025Difficulty of Paying Living ExpensesNot on file05/13/2025Food InsecurityAnswerDate [...] InformationValueDate RecordedSex Assigned at BirthNot on fileLegal DeoRiau2607/03/2012 5:23 AM COPIER AND PRINTER FIELD TECHNICIAN Gender IdentityNot on fileSexual OrientationNot on fileOccupationIndustryJob Start DateJob End Datefork lift driverNot on fileNot on fileNot on file Last Filed Vital Signs Vital SignReadingTime TakenCommentsBlood Yflgvybr070/80107/24/2024 2:28 PM COPIER AND PRINTER FIELD TECHNICIAN Tssmp914405/23/2025 2:28 PM MXVOgcyzovguio39.8 ??C (98.2 ??F)05/23/2025 2:28 PM CSTRespiratory Mbfy485007/22/2024 9:34 AM CSTOxygen Pgedcxfqdl07%05/23/2025 2:28 PM CSTInhaled Oxygen Concentration--Ogbydx84.3 kg (210 lb)05/23/2025 2:28 PM COPIER AND PRINTER FIELD TECHNICIAN Opfdds007.3 cm (5' 9)05/20/2025 5:32 AM CSTBody Mass Index31.01107/21/2024 5:32 AM COPIER AND PRINTER FIELD TECHNICIAN Plan of Treatment DateTypeDepartmentCare Team (Latest Contact Info)Ngwslxvgpno75/06/2026 3:20 PM CSTOffice Visit [facility] [place] [address] Votel, MD [address] [facility] [place] [address] 07/12/2025 8:00 AM CSTOffice Visit [address] [place] [address] Cintia Valerio PA [address] [place] [address] Health MaintenanceDue DateLast DoneCommentsHIV for age 15-6506/18/1978COVID-19 vaccine series (2024- season), 08/24/2021, 02/02/2021, Additional history existsDepression screening for age 12+/, 08/01/2024, 01/12/2024, Additional history existsBMI (ht and wt on same day) for age 18+/, 10/24/2024, 08/16/2024, Additional history exists Fecal testing sDNA-FIT (Cologuard) for age 45-7509/04/2023Lipids for age 45-750907/, 10/26/2021, 08/18/2021, Additional history exists Tetanus wmyiybn38/09/2021, 11/27/2007, 11/27/2007, Additional history existsHepatitis C screening for age 18-38Furqtrsec34/01/2006, 07/02/2005, 07/02/2004Zoster (shingles) series for age 50+Vfftcvrbl48/20/2022, 11/26/2021 Pneumococcal series for age 50+Mfzyqdefr91/04/2022Influenza VaccineCompleted 03/12/2025, 03/22/2024, 04/16/2023, Additional history existsRSV vaccine for adults or blkzfdnfiCvdbrvoah67/23/2025Hepatitis B series for 19+Aged OutNo longer eligible based on patient's age to complete this topic Medical Devices ImplantedTypeAreaManufacturerDevice IdentifierShelf Expiration DateModel / Serial / LotGraft Vasc [id number] Wlgore - [id number] [id number] / / [id number]:r legStent Uret [id number] Perc[employer]lex [employer] - [id number] Implanted:Qty: 1 on 05/13/2025 by [facility] UreterBSC Oaonfbi60/06/[id number] / / [id number] Procedures Procedure NamePriorityDate/TimeAssociated DiagnosisCommentsHEMOGLOBINRoutine 05/23/2025 3:46 PM COPIER AND PRINTER FIELD TECHNICIAN Hematuria, unspecified type GLUCOSE PYYBYFujzasc99/02/2025 7:03 AM COPIER AND PRINTER FIELD TECHNICIAN C-REACTIVE PROTEINEarly AM05/21/2025 6:26 AM COPIER AND PRINTER FIELD TECHNICIAN POTASSIUMEarly AM05/21/2025 6:26 AM COPIER AND PRINTER FIELD TECHNICIAN WHITE BLOOD COUNTEarly AM05/21/2025 6:26 AM COPIER AND PRINTER FIELD TECHNICIAN MAGNESIUMEarly AM05/21/2025 6:26 AM COPIER AND PRINTER FIELD TECHNICIAN HEMOGLOBINEarly AM05/21/2025 6:26 AM COPIER AND PRINTER FIELD TECHNICIAN CREATININEEarly AM05/21/2025 6:26 AM COPIER AND PRINTER FIELD TECHNICIAN GLUCOSE FGCRRFlcnlua58/01/2025 9:21 PM COPIER AND PRINTER FIELD TECHNICIAN GLUCOSE FCSTAElrjdbg25/01/2025 4:33 PM COPIER AND PRINTER FIELD TECHNICIAN GLUCOSE MLMGPLiovhra82/01/2025 10:09 AM COPIER AND PRINTER FIELD TECHNICIAN URINALYSIS KNREXFILNXWJTHL09/01/2025 9:51 AM COPIER AND PRINTER FIELD TECHNICIAN URINE QSZHJXUNdvli67/01/2025 9:51 AM COPIER AND PRINTER FIELD TECHNICIAN UA W/ SEDIMENT EXAM REFLEXED PER OVQBQMJRRFSA29/01/2025 9:51 AM COPIER AND PRINTER FIELD TECHNICIAN CT ABDOMEN PELVIS STONE PROTOCOL YJCPID1305/20/2025 6:24 AM COPIER AND PRINTER FIELD TECHNICIAN C-REACTIVE ZJWXEQOCIAI70/01/2025 6:08 AM COPIER AND PRINTER FIELD TECHNICIAN CBC WITH AUTO QUJNLXWFVNXNQDNU69/01/2025 6:08 AM COPIER AND PRINTER FIELD TECHNICIAN BASIC METABOLIC GBZDMCVHS87/01/2025 6:08 AM COPIER AND PRINTER FIELD TECHNICIAN CBC WITH AUTO BILLSQXDBVHEPIVW05/01/2025 6:08 AM COPIER AND PRINTER FIELD TECHNICIAN US VENOUS LOWER EXTREMITY GRNSRSUYY02/29/2025 7:58 PM COPIER AND PRINTER FIELD TECHNICIAN URINE FNJAUCDAJZW61/29/2025 7:31 PM COPIER AND PRINTER FIELD TECHNICIAN URINALYSIS VDYWYQDMAIVOBIB87/29/2025 7:31 PM COPIER AND PRINTER FIELD TECHNICIAN UA W/ SEDIMENT EXAM REFLEXED PER ATYQXCJEWKOD16/29/2025 7:31 PM COPIER AND PRINTER FIELD TECHNICIAN CT ABDOMEN PELVIS STONE PROTOCOL SVGTQK0605/18/2025 7:22 PM COPIER AND PRINTER FIELD TECHNICIAN CBC WITH AUTO YHXPAITQQNPVOYJN41/29/2025 7:01 PM COPIER AND PRINTER FIELD TECHNICIAN ZFLHDUFHXFZJA15/29/2025 7:01 PM COPIER AND PRINTER FIELD TECHNICIAN EXTRA TUBE QBCOSakxf54/29/2025 7:01 PM CSTCBC WITH AUTO DIFFERENTIALSTAT 05/18/2025 7:01 PM COPIER AND PRINTER FIELD TECHNICIAN BASIC METABOLIC HFSIVOYOV17/29/2025 7:01 PM COPIER AND PRINTER FIELD TECHNICIAN GLUCOSE TQKHHXzjpx03/26/2025 6:56 AM COPIER AND PRINTER FIELD TECHNICIAN GLUCOSE ULHPKHrrbc99/25/2025 9:05 PM COPIER AND PRINTER FIELD TECHNICIAN GLUCOSE SYHNHXoqwt28/25/2025 4:08 PM COPIER AND PRINTER FIELD TECHNICIAN GLUCOSE SGMIJTbrqu45/25/2025 8:52 AM COPIER AND PRINTER FIELD TECHNICIAN WHITE BLOOD COUNTEarly AM05/14/2025 7:48 AM COPIER AND PRINTER FIELD TECHNICIAN HEMOGLOBINEarly AM05/14/2025 7:48 AM COPIER AND PRINTER FIELD TECHNICIAN CREATININEEarly AM05/14/2025 7:48 AM COPIER AND PRINTER FIELD TECHNICIAN POTASSIUMEarly AM05/14/2025 7:48 AM COPIER AND PRINTER FIELD TECHNICIAN GLUCOSE JWIIFYhxav52/24/2025 8:56 PM COPIER AND PRINTER FIELD TECHNICIAN XR RETROGRADE PYELOGRAM W/WO OQBKpypnbp39/24/2025 8:39 PM COPIER AND PRINTER FIELD TECHNICIAN CYSTOSCOPY PLACEMENT URETERAL STENT RWANKLBFILS28/24/2025 7:41 PM COPIER AND PRINTER FIELD TECHNICIAN Left Kidney Stone GLUCOSE JJZYATrdfd39/24/2025 5:07 PM COPIER AND PRINTER FIELD TECHNICIAN GLUCOSE BJHKIXljhz07/24/2025 4:43 PM COPIER AND PRINTER FIELD TECHNICIAN GLUCOSE DRIVFQhcnl46/24/2025 12:04 PM COPIER AND PRINTER FIELD TECHNICIAN CBC W PLT NO DIFFEarly AM05/13/2025 8:14 AM COPIER AND PRINTER FIELD TECHNICIAN MAGNESIUMEarly AM05/13/2025 8:14 AM COPIER AND PRINTER FIELD TECHNICIAN CREATININEEarly AM05/13/2025 8:14 AM COPIER AND PRINTER FIELD TECHNICIAN POTASSIUMEarly AM05/13/2025 8:14 AM COPIER AND PRINTER FIELD TECHNICIAN SODIUMEarly AM05/13/2025 8:14 AM COPIER AND PRINTER FIELD TECHNICIAN GLUCOSE NUAFMMhrpe83/24/2025 7:58 AM COPIER AND PRINTER FIELD TECHNICIAN GLUCOSE VRPMJKuxna05/24/2025 12:13 AM COPIER AND PRINTER FIELD TECHNICIAN CT ABDOMEN PELVIS STONE PROTOCOL XFSTRI7405/12/2025 11:42 AM COPIER AND PRINTER FIELD TECHNICIAN URINE YYZUUIVIKQQ99/23/2025 10:33 AM COPIER AND PRINTER FIELD TECHNICIAN URINALYSIS CEFNDPWUQZWKCSB88/23/2025 10:33 AM COPIER AND PRINTER FIELD TECHNICIAN UA W/ SEDIMENT EXAM REFLEXED PER LENQATGYYDXI97/23/2025 10:33 AM COPIER AND PRINTER FIELD TECHNICIAN XR SPINE LUMBAR 2 QTWHQGKCA94/23/2025 10:21 AM COPIER AND PRINTER FIELD TECHNICIAN CBC WITH AUTO LFYBKTRUPOFYSLAQ37/23/2025 9:45 AM COPIER AND PRINTER FIELD TECHNICIAN BETA HYDROXYBUTYRATE IN ZZIAXZTZK68/23/2025 9:45 AM COPIER AND PRINTER FIELD TECHNICIAN BASIC METABOLIC FMIHKEHHP74/23/2025 9:45 AM COPIER AND PRINTER FIELD TECHNICIAN CBC WITH AUTO GVIFQUGZFHAXBOPL70/23/2025 9:45 AM COPIER AND PRINTER FIELD TECHNICIAN LIPID PANEL W REFLEX MEASURED NONYhijuxa27/25/2024 3:31 PM CDT Hyperlipidemia LDL goal <70 SDNA-FIT EXTERNAL (COLOGUARD)Tyymwge2602/28/2023 3:10 PM CDT Screening for colon cancer ACUTE HEPATITIS YUIDLEjtbfif41/01/2006 10:30 AM COPIER AND PRINTER FIELD TECHNICIAN Peripheral Vascular Disease from Last 3 Months or Most Recently Relevant to Health Maintenance Results * (ABNORMAL) HEMOGLOBIN (05/23/2025 3:46 PM COPIER AND PRINTER FIELD TECHNICIAN) Only the most recent of3 resultswithin the time period is included. ComponentValueRef RangeTest MethodAnalysis TimePerformed AtPathologist Signature SKZMMSCSQW19.213.2 - 17.1 g/dL05/24/2025 3:34 AM CSTQUEST CYMFRITIBLIXCJ312.5(H) 81.4 - 101.7 fL05/24/2025 3:34 AM CSTQUEST DIAGNOSTICSSpecimen (Source) Anatomical Location / LateralityCollection Method / VolumeCollection Time Received TimeBloodBLOOD SPECIMEN / UnknownQuest Collect / Mmovcsn0505/23/2025 3:46 PM CST05/23/2025 3:46 PM COPIER AND PRINTER FIELD TECHNICIAN Narrative Authorizing ProviderResult TypeResult StatusAlex Valderrama MDHEMATOLOGY Final ResultPerforming OrganizationAddressCity/State/ZIP CodePhone Number [facility] [address] [phone], * GLUCOSE METER (05/21/2025 7:03 AM COPIER AND PRINTER FIELD TECHNICIAN) Only the most recent of14 resultswithin the time period is included. ComponentValueRef RangeTest MethodAnalysis TimePerformed AtPathologist Signature GLUCOSE DFHXN5051 - 100 mg/dL05/21/2025 7:04 AM [facility]STST. [facility] LABORATORYSpecimen (Source)Anatomical Location / LateralityCollection Method / VolumeCollection TimeReceived TimeBloodBLOOD SPECIMEN / Hvlgxai5305/21/2025 7:03 AM CST05/21/2025 7:04 AM COPIER AND PRINTER FIELD TECHNICIAN Narrative Authorizing ProviderResult TypeResult Status[facility] HospitalistCHEMISTRYFinal ResultPerforming OrganizationAddressCity/State/ZIP CodePhone Number [facility] [address] [place] [phone] * WHITE BLOOD COUNT (05/21/2025 6:26 AM COPIER AND PRINTER FIELD TECHNICIAN) Only the most recent of2 resultswithin the time period is included. ComponentValueRef RangeTest MethodAnalysis TimePerformed AtPathologist Signature WHITE BLOOD COUNT7.34.5 - 11.0 thou/cu mm05/21/2025 7:29 AM CSTST. MARY MED[facility] LABORATORYSpecimen (Source)Anatomical Location / LateralityCollection Method / VolumeCollection TimeReceived TimeBloodBLOOD SPECIMEN / Unknown Venipuncture / Simpmvl0205/21/2025 6:26 AM CST05/21/2025 7:19 AM COPIER AND PRINTER FIELD TECHNICIAN Narrative Authorizing ProviderResult TypeResult StatusPrabhjot Castaneda DOHEMATOLOGY Final ResultPerforming OrganizationAddressCity/State/ZIP CodePhone Number [facility] [address] [place] [phone] * POTASSIUM (05/21/2025 6:26 AM COPIER AND PRINTER FIELD TECHNICIAN) Only the most recent of3 resultswithin the time period is included. ComponentValueRef RangeTest MethodAnalysis TimePerformed AtPathologist Signature POTASSIUM4.83.5 - 5.1 mmol/L107/22/2024 7:54 AM [facility] LABORATORYSpecimen (Source)Anatomical Location / LateralityCollection Method / VolumeCollection TimeReceived TimeBloodBLOOD SPECIMEN / UnknownVenipuncture / Etfotwo2505/21/2025 6:26 AM CST05/21/2025 7:19 AM COPIER AND PRINTER FIELD TECHNICIAN Narrative Authorizing ProviderResult TypeResult StatusPrabhjot Castaneda DOCHEMISTRYFinal ResultPerforming OrganizationAddressCity/State/ZIP CodePhone Number [facility] [address] [place] [phone] * (ABNORMAL) CREATININE (05/21/2025 6:26 AM COPIER AND PRINTER FIELD TECHNICIAN) Only the most recent of3 resultswithin the time period is included. ComponentValueRef RangeTest MethodAnalysis TimePerformed AtPathologist Signature eGFR89(L)>90 mL/min/1.22l66505/21/2025 7:54 AM [facility] LABORATORYComment:As of 09/01/2021, eGFR is calculated by the CKD-EPI creatinine equation without race adjustment. ??eGFR can be influenced by muscle mass, exercise, and diet. ??The reported eGFR is an estimation onlyand is only applicable if the renal function is stable.CREATININE0.970.70 - 1.20 mg/dL 05/21/2025 7:54 AM [facility] LABORATORYSpecimen (Source) Anatomical Location / LateralityCollection Method / VolumeCollection Time Received TimeBloodBLOOD SPECIMEN / UnknownVenipuncture / Xiuvvxi2805/21/2025 6:26 AM CST05/21/2025 7:19 AM COPIER AND PRINTER FIELD TECHNICIAN Narrative Authorizing ProviderResult TypeResult StatusPrabhjot Celestine [facility] DOCHEMISTRYFinal ResultPerforming OrganizationAddressCity/State/ZIP CodePhone Number [facility] [address] [place] [address] * (ABNORMAL) C-REACTIVE PROTEIN (05/21/2025 6:26 AM COPIER AND PRINTER FIELD TECHNICIAN) Only the most recent of2 resultswithin the time period is included. ComponentValueRef RangeTest MethodAnalysis TimePerformed AtPathologist Signature C-REACTIVE PROTEIN1.5(H)<0.5 mg/dL05/21/2025 7:54 AM CSTST. MARY [facility] LABORATORYSpecimen (Source)Anatomical Location / LateralityCollection Method / VolumeCollection TimeReceived TimeBloodBLOOD SPECIMEN / UnknownVenipuncture / Wdvxmct6905/21/2025 6:26 AM CST05/21/2025 7:19 AM COPIER AND PRINTER FIELD TECHNICIAN Narrative Authorizing ProviderResult TypeResult StatusMedical [facility] DOCHEMISTRYFinal ResultPerforming OrganizationAddressCity/State/ZIP CodePhone Number [facility] [address] [place] [address] * MAGNESIUM (05/21/2025 6:26 AM COPIER AND PRINTER FIELD TECHNICIAN) Only the most recent of3 resultswithin the time period is included. ComponentValueRef RangeTest MethodAnalysis TimePerformed AtPathologist Signature MAGNESIUM2.11.6 - 2.4 mg/dL05/21/2025 7:54 AM [facility] LABORATORYSpecimen (Source)Anatomical Location / LateralityCollection Method / VolumeCollection TimeReceived TimeBloodBLOOD SPECIMEN / UnknownVenipuncture / Tkpnpxw7005/21/2025 6:26 AM CST05/21/2025 7:19 AM COPIER AND PRINTER FIELD TECHNICIAN Narrative Authorizing ProviderResult TypeResult Status[facility] DOCHEMISTRYFinal ResultPerforming OrganizationAddressty/State/ZIP CodePhone Number [facility] [address] [place] [address] * (ABNORMAL) URINALYSIS MICROSCOPIC (05/20/2025 9:51 AM COPIER AND PRINTER FIELD TECHNICIAN) Only the most recent of3 resultswithin the time period is included. ComponentValueRef RangeTest MethodAnalysis TimePerformed AtPathologist Signature RBC>100(A)0-2, None Seen /HPF05/20/2025 10:22 AM [facility] LABORATORYWBCNone Seen0-2, 3-5, None Seen /HPF05/20/2025 10:22 AM [facility] LABORATORYBACTERIAModerate(A)None Seen, Rare, Few Bacteria/HPF 05/20/2025 10:22 AM [facility] LABORATORYEPITHELIAL CELLSNone SeenNone Seen, Few Epi/HPF05/20/2025 10:22 AM [facility] LABORATORYCALCIUM OXALATE CRYSTALSPresent(A)(none)05/20/2025 10:22 AM COPIER AND PRINTER FIELD TECHNICIAN [facility] LABORATORYSpecimen (Source)Anatomical Location / LateralityCollection Method / VolumeCollection TimeReceived TimeUrineURINE SPECIMEN / UnknownNon-Blood / Rxoiapo9105/20/2025 9:51 AM CST05/20/2025 10:11 AM COPIER AND PRINTER FIELD TECHNICIAN Narrative Authorizing ProviderResunm cancer center TypeResunm cancer center StatusJerry Pratt MDURINEFinal ResultPerforming OrganizationAddressCity/State/ZIP CodePhone Number [facility] [address] [place] [address] * URINE CULTURE (05/20/2025 9:51 AM COPIER AND PRINTER FIELD TECHNICIAN) Only the most recent of3 resultswithin the time period is included. ComponentValueRef RangeTest MethodAnalysis TimePerformed AtPathologist Signature CULTURENo growth (<1,000 CFU/mL)05/21/2025 8:52 AM [facility] LABORATORYSpecimen (Source)Anatomical Location / LateralityCollection Method / VolumeCollection TimeReceived TimeUrineURINE SPECIMEN / UnknownNon- Blood / Psbtyxb1905/20/2025 9:51 AM CST05/20/2025 10:11 AM COPIER AND PRINTER FIELD TECHNICIAN Narrative Authorizing ProviderPl[facility] TypeResunm cancer center StatusJerry Pratt MD MICROBIOLOGYFinal ResultPerforming OrganizationAddressCity/State/ZIP CodePhone Number [facility] [address] [place] [address], [place] * (ABNORMAL) UA W/ SEDIMENT EXAM REFLEXED PER CRITERIA (05/20/2025 9:51 AM COPIER AND PRINTER FIELD TECHNICIAN) Only the most recent of3 resultswithin the time period is included. ComponentValueRef RangeTest MethodAnalysis TimePerformed AtPathologist Signature COLORRed(A)Yellow Color05/20/2025 10:17 AM [facility] LABORATORYCLARITYTurbid(A)Clear Ciqdywj6205/20/2025 10:17 AM [facility] LABORATORYSPECIFIC GRAVITY,URINEUnable to interpret due to interfering substance(A)1.010, 1.015, 1.020, 1.6224505/20/2025 10:17 AM [facility] LABORATORYPH,URINEUnable to interpret due to interfering substance(A)6.0, 7.0, 8.0, 5.5, 6.5, 7.5, 8. 10:17 AM [facility] LABORATORYUROBILINOGEN,QUALITATIVEUnable to interpret due to interfering substance(A)Normal EU/dl05/20/2025 10:17 AM [facility] LABORATORYPROTEIN, URINEUnable to interpret due to interfering substance(A) Negative mg/dL05/20/2025 10:17 AM [facility] LABORATORYGLUCOSE, URINEUnable to interpret due to interfering substance(A)Negative mg/dL05/20/2025 10:17 AM [facility] LABORATORYKETONES,URINEUnable to interpret due to interfering substance(A)Negative mg/dL05/20/2025 10:17 AM [facility] LABORATORYBILIRUBIN,URINEUnable to interpret due to interfering substance(A)Iwaejujr85/01/2025 10:17 AM [facility] Comment:A variety of metabolites and/or medications may result in a positive bilirubin result. Clinical correlation is recommended.OCCULT BLOOD,URINEUnable to interpret due to interfering substance(A)Leprujpu37/01/2025 10:17 AM [facility] LABORATORYNITRITEUnable to interpret due to interfering substance(A)Flfasmkk78/01/2025 10:17 AM [facility] LABOR[facility]ORY LEUKOCYTE ESTERASEUnable to interpret due to interfering substance(A)Negative 05/20/2025 10:17 AM [facility] LABORATORYSpecimen (Source) Anatomical Location / LateralityCollection Method / VolumeCollection Time Received TimeUrineURINE SPECIMEN / UnknownNon-Blood / Ndkmocg9405/20/2025 9:51 AM CST05/20/2025 10:11 AM 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 [address] [place] [address] * CT ABDOMEN PELVIS STONE PROTOCOL WO (05/20/2025 6:24 AM COPIER AND PRINTER FIELD TECHNICIAN) Only the most recent of3 resultswithin the time period is included. Anatomical RegionLateralityModalityAbdomen, Pelvis, AORTA, LIVER, SPLEENComputed TomographySpecimen (Source)Anatomical Location / LateralityCollection Method / VolumeCollection TimeReceived Time05/20/2025 6:34 AM COPIER AND PRINTER FIELD TECHNICIAN Impressions 05/20/2025 6:34 AM COPIER AND PRINTER FIELD TECHNICIAN 1. The left-sided internalized ureteral stent is [...] AM (Electronically Signed) Narrative 05/20/2025 6:34 AM COPIER AND PRINTER FIELD TECHNICIAN For Patients: As a result of the [...] CBC WITH AUTO DIFFERENTIAL (05/20/2025 6:08 AM COPIER AND PRINTER FIELD TECHNICIAN) Only the most recent of3 resultswithin the time period is included. ComponentValueRef RangeTest MethodAnalysis TimePerformed AtPathologist Signature WHITE BLOOD COUNT14.0(H)4.5 - 11.0 thou/cu mm05/20/2025 6:36 AM [facility] LABORATORYRED BLOOD COUNT4.15(L)4.30 - 5.90 mil/cu mm05/20/2025 6:36 AM [facility] RXNARVKZYDLHZATEJJOA02.813.5 - 17.5 g/dL 05/20/2025 6:36 AM [facility] QBJSMBGXXLHOXPGPXTWH88.737.0 - 53.0 %05/20/2025 6:36 AM [facility] EDGNDZMWAJBEN975(H)80 - 100 fL05/20/2025 6:36 AM [facility] MBVEKOLPCDHND76.326.0 - 34.0 pg 05/20/2025 6:36 AM [facility] ZQNBKLZFXNQNTB60.132.0 - 36.0 g/dL05/20/2025 6:36 AM [facility] TVAWHQEJYEOYZ79.411.5 - 15.5 %05/20/2025 6:36 AM [facility] LABORATORYPLATELET PXJZN531782 - 440 thou/cu mm05/20/2025 6:36 AM [facility] LABORATORYMPV9.96.5 - 11.0 fL05/20/2025 6:36 AM [facility] LABORATORY% NEUT81.0% 05/20/2025 6:36 AM [facility]ATORY% LYMPH9.2%05/20/2025 6:36 AM [facility] LABORATORY% MONO7.5%05/20/2025 6:36 AM [facility]% EOS2.0%05/20/2025 6:36 AM [facility]ATORY% BASO0.3%05/20/2025 6:36 AM [facility] LABORATORYABSOLUTE UOPLUBQRHVV21.4(H)1.7 - 7.0 thou/cu mm05/20/2025 6:36 AM [facility] LABORATORYABSOLUTE LYMPHOCYTES1.30.9 - 2.9 thou/cu mm05/20/2025 6:36 AM [facility] LABORATORYABSOLUTE MONOCYTES1.1(H)<0.9 thou/cu mm05/20/2025 6:36 AM [facility] LABORATORYABSOLUTE EOSINOPHILS0.3<0.5 thou/cu mm05/20/2025 6:36 AM [facility] LABORATORYABSOLUTE BASOPHILS0.0<0.3 thou/cu mm05/20/2025 6:36 AM [facility] LABORATORYSpecimen (Source)Anatomical Location / LateralityCollection Method / VolumeCollection TimeReceived TimeBloodBLOOD SPECIMEN / UnknownVenipuncture / Isqzskr8805/20/2025 6:08 AM CST05/20/2025 6:27 AM COPIER AND PRINTER FIELD TECHNICIAN Narrative Authorizing ProviderResult TypeResult StatusNatchristine Pratt MDHEMATOLOGY Final ResultPerforming OrganizationAddressCity/State/ZIP CodePhone Number [facility] [address] [place] [address] * (ABNORMAL) BASIC METABOLIC PANEL (05/20/2025 6:08 AM COPIER AND PRINTER FIELD TECHNICIAN) Only the most recent of3 resultswithin the time period is included. ComponentValueRef RangeTest MethodAnalysis TimePerformed AtPathologist Signature [id number] - 145 mmol/L107/21/2024 6:47 AM [facility] LABORATORYPOTASSIUM4.03.5 - 5.1 mmol/L107/21/2024 6:47 AM [facility] NYRADQKXUOBBVNFGKM88716 - 107 mmol/L107/21/2024 6:47 AM [facility] LABORATORYCO2,MZBWR0894 - 29 mmol/L107/21/2024 6:47 AM [facility] LABORATORYANION YXB425 - 18107/21/2024 6:47 AM [facility] PADPOVBLJKRRZHRAC445(H)70 - 99 mg/dL05/20/2025 6:47 AM [facility] LABORATORYCALCIUM9.48.8 - 10.4 mg/dL05/20/2025 6:47 AM [facility] LABORATORYComment: Reference ranges for this test were updated on 04/24/2024 to reflect our healthy population more accurately. Reference range changes are not retroactively applied to results, but previous results using the same methodology can be interpreted in the context of the new reference range. VWK838 - 23 mg/dL05/20/2025 6:47 AM [facility] LABORATORY CREATININE1.140.70 - 1.20 mg/dL05/20/2025 6:47 AM [facility] LABORATORYBUN/CREAT LEMAQ6350 - 6:47 AM [facility] ZRADSODBCSjDZD82(L)>90 mL/min/1.15a20405/20/2025 6:47 AM [facility] LABORATORYComment:As of 09/01/2021, eGFR is calculated by the CKD-EPI creatinine equation without race adjustment. ??eGFR can be influenced by muscle mass, exercise, and diet. ??The reported eGFR is an estimation onlyand is only applicable if the renal function is stable.Specimen (Source)Anatomical Location / LateralityCollection Method / VolumeCollection TimeReceived TimeBloodBLOOD SPECIMEN / UnknownVenipuncture / Xqwtdst2305/20/2025 6:08 AM CST05/20/2025 6:27 AM COPIER AND PRINTER FIELD TECHNICIAN Narrative Authorizing ProviderResult TypeResult StatusNathantaylor Pratt MDCHEMISTRY Final ResultPerforming OrganizationAddressCity/State/ZIP CodePhone Number [facility] [address] [place] [address] * US VENOUS LOWER EXTREMITY RIGHT (05/18/2025 7:58 PM COPIER AND PRINTER FIELD TECHNICIAN)Anatomical Region LateralityModalityLEGS, LEG R, AbdomenUltrasoundSpecimen (Source)Anatomical Location / LateralityCollection Method / VolumeCollection TimeReceived Time 05/18/2025 8:08 PM COPIER AND PRINTER FIELD TECHNICIAN Impressions 05/18/2025 8:08 PM COPIER AND PRINTER FIELD TECHNICIAN 1. Acute DVT in the right gastrocnemius vein. 2. Findings discussed with Dakota Cardoso at 8:08 p.m. on 05/18/2025. Dictated by Estrella Flores MD @ 05/18/2025 8:05:43 PM (Electronically Signed) Narrative 05/18/2025 8:08 PM COPIER AND PRINTER FIELD TECHNICIAN For Patients: As a result of the [...] * EXTRA TUBE BLUE (05/18/2025 7:01 PM COPIER AND PRINTER FIELD TECHNICIAN)Specimen (Source)Anatomical Location / LateralityCollection Method / VolumeCollection TimeReceived TimeBloodBLOOD SPECIMEN / UnknownIV Start / Yvnulzx5405/18/2025 7:01 PM CST05/18/2025 7:09 PM COPIER AND PRINTER FIELD TECHNICIAN Narrative Authorizing ProviderResult TypeResult StatusDakota Cardoso MDLABORATORY Final ResultPerforming OrganizationAddressCity/State/ZIP CodePhone Number [facility] [address] [place] [address] * XR RETROGRADE PYELOGRAM W/WO KUB (05/13/2025 8:39 PM COPIER AND PRINTER FIELD TECHNICIAN)Anatomical Region LateralityModalityKIDNEYS, AbdomenComputed RadiographySpecimen (Source) Anatomical Location / LateralityCollection Method / VolumeCollection Time Received Time05/13/2025 8:39 PM COPIER AND PRINTER FIELD TECHNICIAN Narrative 05/14/2025 12:31 AM COPIER AND PRINTER FIELD TECHNICIAN For Patients: As a result of the [...] W PLT NO DIFF (05/13/2025 8:14 AM COPIER AND PRINTER FIELD TECHNICIAN)ComponentValueRef Range Test MethodAnalysis TimePerformed AtPathologist SignatureWHITE BLOOD COUNT13.1 (H)4.5 - 11.0 thou/cu mm05/13/2025 8:35 AM [facility] LABORATORYRED BLOOD COUNT3.80(L)4.30 - 5.90 mil/cu mm05/13/2025 8:35 AM [facility] IKXRBPIYLOXXQWQEZTQF96.8(L)13.5 - 17.5 g/dL05/13/2025 8:35 AM [facility] EGIMKQIURTEKLTPCUTVW99.737.0 - 53.0 %05/13/2025 8:35 AM [facility] YQGUBNCKREDUL9168 - 100 fL05/13/2025 8:35 AM [facility] HKWXZKLSWRJRO08.726.0 - 34.0 pg05/13/2025 8:35 AM [facility] PIBWLSCZAFXNCK20.032.0 - 36.0 g/dL05/13/2025 8:35 AM [facility] YTEVJBZWYLMBC42.211.5 - 15.5 %05/13/2025 8:35 AM [facility] PLATELET RGJUP574466 - 440 thou/cu mm05/13/2025 8:35 AM [facility] LABORATORYMPV9.56.5 - 11.0 fL05/13/2025 8:35 AM [facility] NRBC0.0%05/13/2025 8:35 AM [facility] LABORATORYABS NRBC0.0thou /cu mm 05/13/2025 8:35 AM [facility] LABORATORYSpecimen (Source)Anatomical Location / LateralityCollection Method / VolumeCollection TimeReceived Time BloodBLOOD SPECIMEN / UnknownVenipuncture / Ftlkkgm4005/13/2025 8:14 AM COPIER AND PRINTER FIELD TECHNICIAN 05/13/2025 8:18 AM COPIER AND PRINTER FIELD TECHNICIAN Narrative Authorizing ProviderResult TypeResult StatusEllen Merna Snow MDHEMATOLOGY Final ResultPerforming OrganizationAddressCity/State/ZIP CodePhone Number [facility] [address] [place] [address] [address] [place] [address] * SODIUM (05/13/2025 8:14 AM COPIER AND PRINTER FIELD TECHNICIAN)ComponentValueRef RangeTest MethodAnalysis Time Performed AtPathologist AbejxjewaERKZFR226884 - 145 mmol/L107/13/2024 8:55 AM [facility] LABORATORYSpecimen (Source)Anatomical Location / Laterality Collection Method / VolumeCollection TimeReceived TimeBloodBLOOD SPECIMEN / UnknownVenipuncture / Nejclep5305/13/2025 8:14 AM CST05/13/2025 8:18 AM COPIER AND PRINTER FIELD TECHNICIAN Narrative Authorizing ProviderResult TypeResult StatusEllen Merna Snow MDCHEMISTRY Final ResultPerforming OrganizationAddressCity/State/ZIP CodePhone Number [facility] S[address]OUT [address] [phone] [place] [address] * XR SPINE LUMBAR 2 VIEWS (05/12/2025 10:21 AM COPIER AND PRINTER FIELD TECHNICIAN)Anatomical RegionLaterality ModalityLUMBAR SPINEDigital RadiographySpecimen (Source)Anatomical Location / LateralityCollection Method / VolumeCollection TimeReceived Time05/12/2025 10:44 AM COPIER AND PRINTER FIELD TECHNICIAN Impressions 05/12/2025 10:44 AM COPIER AND PRINTER FIELD TECHNICIAN No acute traumatic injuries identified. Incidental findings detailed in the body of the report. Dictated by Zak Hurt MD @ 05/12/2025 10:44:53 AM (Electronically Signed) Narrative 05/12/2025 10:44 AM COPIER AND PRINTER FIELD TECHNICIAN For Patients: As a result of the [...] @ 05/12/2025 10:44:53 AM (Electronically Signed) Authorizing ProviderSt. [facility] July Gentile MDGENERAL IMAGINGFinal Result * BETA HYDROXYBUTYRATE IN HOUSE (05/12/2025 9:45 AM COPIER AND PRINTER FIELD TECHNICIAN)ComponentValueRef Range Test MethodAnalysis TimePerformed AtPathologist SignatureBETA HYDROXYBUTYRATE <0.6<0.6 mmol/L107/12/2024 9:56 AM [facility] Specimen (Source)Anatomical Location / LateralityCollection Method / Volume Collection TimeReceived TimeBloodBLOOD SPECIMEN / UnknownVenipuncture / Ipwjtye4505/12/2025 9:45 AM CST05/12/2025 9:48 AM COPIER AND PRINTER FIELD TECHNICIAN Narrative Authorizing ProviderSt. [facility] July Gentile MDSEND OUTSFinal ResultPerforming OrganizationAddressCity/State/ZIP CodePhone Number [facility] [address] [place] [address] * LIPID PANEL W REFLEX MEASURED LDL (01/12/2024 3:31 PM CDT)ComponentValueRef RangeTest MethodAnalysis TimePerformed AtPathologist Signature CHOLESTEROL,[id number] - 199 mg/dL01/13/2024 3:01 PM CDB[facility] LAB[facility]-CENTRAL LABORATORYComment: Cholesterol, Total Reference Ranges Desirable <200 mg/dL Borderline 200-239 mg/dL High >=240 mg/dL XUXSUCRUQJISI09<150 mg/dL01/13/2024 3:01 PM [facility] LAB[facility]-CENTRAL LABORATORYHDL YYUUGMRZDFL04>40 mg/dL01/13/2024 3:01 PM [facility] LABORATORY-CENTRAL LABORATORYNON-HDL KJNTGKXBJGO18<145 mg/dl01/13/2024 3:01 PM [facility]-CENTRAL LABORATORYCHOL/HDL RATIO2.49<4.50001/13/2024 3:01 PM [facility]-CEN[facility]AL LABORATORYLDL YZXAQPSHCHF05<=130 mg/dL01/13/2024 3:01 PM [facility] LABORATORYVLDL WBCWDNJUASF84<=30 mg/dL01/13/2024 3:01 PM [facility] LABORATORYPROVIDER ORDERED ORLIERGJSVHA96/26/2024 3:01 PM [facility]AL LABORATORYSpecimen (Source)Anatomical Location / Laterality Collection Method / VolumeCollection TimeReceived TimeBloodBLOOD SPECIMEN / UnknownVenipuncture / Csqyiiy8001/12/2024 3:31 PM CDT01/12/2024 3:32 PM CDT Narrative Authorizing ProviderResult TypeResult StatusWilliam Hair Valderrama MDCHEMISTRY Final ResultPerforming OrganizationAddressCity/State/ZIP CodePhone Number [facility]AL LABORATORY [address] [place] [address], * SDNA-FIT EXTERNAL (COLOGUARD) (02/28/2023 3:10 PM CDT)ComponentValueRef Range Test MethodAnalysis TimePerformed AtPathologist SignatureNONINV COLON CA DNA+OCC BLD SCRN STL-XBXFkwweuvmUgpmqqhj31/18/2023 9:08 AM CDTEXtarpipe (CLIA #:[id number])Comment: NEGATIVE TEST RESULT. A negative Cologuard result [...] (Mar Latham al, N Engl J Med 2014;370(14):6690-8218) The normal value (reference range) for this assay is negative. COLOGUARD RE-SCREENING RECOMMENDATION: Periodic colorectal cancer screening is an important part ofpreventive healthcare for asymptomatic individuals at average risk for colorectal cancer. ??Following a negative Cologuard result, the [place] [employer] and U.S. Multi-Society Task Force screening guidelines recommend a Cologuard re-screening interval of 3 years. References: [place] [employer] Guideline for Colorectal Cancer Screening: https://www.cancer.or g/cancer/bnvnc-subjxr-hmfzvd/veqpennki-mencujqps-emjtcaf/acs-recommendations.htm lyn; Paul ARCEO, Joao GRUBER, Kevin DiehlK, Colorectal Cancer Screening: Recommendations for Physicians and Patients from the U.S. Multi-Society Task Force on Colorectal Cancer Screening , Am J Gastroenterology 2017; 112:9491-1679. TEST DESCRIPTION: Composite algorithmic analysis of stool [...] colonoscopy. (Mar Alonso, N Engl J Med 2014;370(14):3331-8488.) Cologuard may produce a false negative or false positive result (no colorectal cancer or precancerous polyp present at colonoscopy follow up). A negative Cologuard test result does not guarantee the absence of CRC or advanced adenoma (pre-cancer). The current Cologuard screening interval is every 3 years. ([place] [employer] and U.S. Multi-Society Task Force). Cologuard performance data in a 10,000 patient pivotal study using colonoscopy as the reference method can be accessed at the following location: www.Efizity.Festicket/results. Additional description of the Cologuard test process, warnings and precautions can be found at www.cologuard.com. Specimen (Source)Anatomical Location / LateralityCollection Method / Volume Collection TimeReceived TimeStool specimen (specimen) (Rectum)02/28/2023 3:10 PM CDT03/01/2023 8:42 PM CDT Narrative Authorizing ProviderResult TypeResult StatusWihelen Valderrama MDURINEFinal ResultPerforming OrganizationAddressCity/State/ZIP CodePhone Number [facility] (CLIA #:[id number]) [place] [address], * ACUTE HEPATITIS PANEL (08/18/2005 10:30 AM COPIER AND PRINTER FIELD TECHNICIAN)ComponentValueRef RangeTest MethodAnalysis TimePerformed AtPathologist SignatureHBSAGNon-reactiveMEMORIID BLOOD CENTERIGM ANTI HBCNon-reactiveMEFAYETTE MEMORIAL HOSPITAL ASSOCIATION BLOOD CENTERIGM ANTI HAV Non-reactiveMERCY HEALTH ST. [facility] BLOOD CENTERANTI HCVNon-reactiveMERCY HEALTH ST. [facility] B[facility] Specimen (Source)Anatomical Location / LateralityCollection Method / Volume Collection TimeReceived TimeBlood specimen (specimen)BLOOD SPECIMEN / Unknown 08/18/2005 10:30 AM CST08/18/2005 10:16 AM COPIER AND PRINTER FIELD TECHNICIAN Narrative [facility] - 08/23/2005 12:47 PM COPIER AND PRINTER FIELD TECHNICIAN Testing Performed By [place], [place] Authorizing ProviderResult TypeResult StatusYvon AVILES OUTSFinal ResultPerforming OrganizationAddressCity/State/ZIP CodePhone Number [facility] [address] [place] [phone] from Last 3 Months or Most Recently Relevant to Health Maintenance Insurance Advance Directives * Full Code (Latest Code Status on File) Date ActivatedDate WymryqzfbyrUuvtdexv28/2/2025 10:33 AM12/07/2024 5:21 PM QuestionAnswerCommentsCode Status Discussion:* Reviewed Preferences * Full Code Date ActivatedDate UqwvmynhriuLwbrgynv28/1/2025 9:31 AM05/21/2025 10:33 AM QuestionAnswerCommentsCode Status Discussion:* Unable to Assess Preferences, Provider to review later * Full Code Date ActivatedDate VoguiyehwdmItdhzsuq01/23/2025 11:00 PM05/15/2025 2:12 PM QuestionAnswerCommentsCode Status Discussion:* Reviewed Preferences * Full Code Date ActivatedDate TtodjacaxbkDcjfiepc73/23/2025 10:20 PM05/12/2025 11:00 PM QuestionAnswerCommentsCode Status Discussion:* Unable to Assess Preferences, Provider to review later * Full Code Date ActivatedDate InactivatedComments09/25/2020 3:24 PM09/30/2020 1:26 PMQuestion AnswerCommentsCode Status Discussion:* Not Discussed Care Teams Team MemberRelationshipSpecialtyStart DateEnd Date Votel, Alex Arndt MD [address] [place] [address] PCP - GeneralFamily Practice12/28/23
[2025-06-10 01:22] LABS: Chloride* 104 mmol/L (96-114); Potassium* 4.2 mmol/L (3.6-5.1); Sodium* 135 mmol/L (135-149)
[2025-06-10 01:24] LABS: Appearance Urine Cloudy (Clear)
[2025-06-10 01:25] LABS: Blood Urea Nitrogen* 16 mg/dL (7-30); Creatinine* 0.9 mg/dL (0.5-1.5); Est. Creatinine Clearance* 77.57; Estimated Glomerular Filt Rate 97 ml/min
[2025-06-10 01:26] LABS: Anion Gap 10 mEq/L (7-15); Calcium* 9.2 mg/dL (8.4-10.6); Carbon Dioxide* 21 mmol/L (20-32); Glucose* 135 mg/dL (60-115)
[2025-06-10 01:32] LABS: Starch Urine Few
[2025-06-10] MEDS: cefTRIAXone 2 GM in 0.9 % SODIUM CHLORIDE Mini-bag 100 ML IVPB (01:42)
[2025-06-10] MEDS: ONDANSETRON 2 MG/ML inj 4 MG IVP ×2 (07:14→10:59)
[2025-06-10] MEDS: 0.9 % SODIUM CH + KCL 20 mEq/L 1,000 ML 100 ML IV (11:48)
[2025-06-10] MEDS: MORPHINE 4 MG/ML INJ IVP (17:09)
== END 2025-06-10 19:25 | disposition other institution (70) ==
PROVIDERS: Emergency Provider Emergency Medicine
DX: N39.0 Urinary tract infection, site not specified (principal); N13.5 Crossing vessel and stricture of ureter without hydronephrosis; N20.0 Calculus of kidney; I73.9 Peripheral vascular disease, unspecified; E11.9 Type 2 diabetes mellitus without complications; Z79.84 Long term (current) use of oral hypoglycemic drugs; Z86.718 Personal history of other venous thrombosis and embolism; Z79.01 Long term (current) use of anticoagulants; Z87.442 Personal history of urinary calculi
CPT/HCPCS: 36415; 74176; 80048; 81001; 84484; 85025; 87086; 93005; 96361; 96365; 96375; 96376; 99285; J0696; J2060; J2270; J2405; J7030

== ENCOUNTER 2025-06-10 19:19 | Outpatient (CLI) | payer BC, SELFPAY | END 2025-06-10 19:20 | disposition home or self-care (01) | LOC: AMB 06-12 18:15 | PROVIDERS: Visit Provider Family Medicine | DX: T83.192A Other mechanical complication of indwelling ureteral stent, initial encounter (principal); N39.0 Urinary tract infection, site not specified; N20.0 Calculus of kidney | CPT/HCPCS: A0425; A0434 ==